=== PATIENT | male | born 1985 | race Caucasian/White ===

== ENCOUNTER → 2020-06-03 | Outpatient (CLI) | payer OTHER, SELFPAY | END | disposition home or self-care (01) | LOC: MTDU 17:40 | PROVIDERS: PCP Family Medicine; Referring Provider Student in an Organized Health Care Education/Training Program; Visit Provider Student in an Organized Health Care Education/Training Program | DX: M79.10 Myalgia, unspecified site (principal); R11.2 Nausea with vomiting, unspecified; Z78.9 Other specified health status; Z03.818 Encounter for observation for suspected exposure to other biological agents ruled out | CPT/HCPCS: 87635; C9803; U0003 ==

== ENCOUNTER 2020-11-29 01:50 | Observation (INO) | payer OTHER, SELFPAY ==
[2020-11-29] VITALS (14 sets, daily range): BP systolic 136–188; BP diastolic 70–110; PULSE 95–142; RESP 16–19; TEMP 36.6–37.2; O2SAT 94–98; BMI 41.3; BMI 38.9; BMI 39.0
--- NOTE | 2020-11-29 02:05 | EKG12_ITS ---
Test Reason : SYNCOPE Blood Pressure : / mmHG Vent. Rate : 115 BPM Atrial Rate : 115 BPM P-R Int : 164 ms QRS Dur : 094 ms QT Int : 336 ms P-R-T Axes : 047 020 021 degrees QTc Int : 464 ms Sinus tachycardia Otherwise normal ECG Confirmed by ONOFRE MICHELLE, LASHAWN ([id number]), continuity editor PHOENIX OLSEN ([id number]) on 11/29/2020 10:52:52 AM Referred By: RENETTA Confirmed By:LASHAWN ADHIKARI MD
--- NOTE | 2020-11-29 02:05 | RAD_ITS ---
STUDY: X-RAY CHEST REASON FOR EXAM: Male, 35 years old. syncope TECHNIQUE: Single AP portable view of the chest. COMPARISON: 03/19/2013 FINDINGS: The lungs are clear and expanded. There is no demonstrated pleural abnormality. Normal size heart. Normal mediastinum and karla. Normal visualized pulmonary arteries. Normal visualized aortic arch and descending thoracic aorta. Normal visualized thoracic spine. Normal visualized ribs, clavicles, and shoulders. There is no demonstrated abnormality of the visualized soft tissue structures of the upper abdomen. RAD/Chest 1 View (Portable) IMPRESSION: Normal x-ray examination of the chest. Electronically Signed: Abdulaziz York DO at 2:31 EST Tel , Service support ,
--- NOTE | 2020-11-29 02:06 | ED.VIS.GEN ---
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 Patient states that he was cleaning out the cats litter box while he was getting trash ready. He members leaning over to scoop the cat litter. He got a spasm-like sensation in his right hand and dropped the litter scope. He states he then felt a shocklike sensation on the right side of his head and he had a syncopal episode. Paramedics report the was doing chest compressions but did not check to see if he had a pulse. Paramedics state patient was sitting up, alert, and talking on their arrival. At this time patient states that he feels slightly dizzy but otherwise back to normal. He denies having chest pain or palpitations. He does report having a prescription for Ativan to take for palpitations that PCP felt was related to anxiety. After patient's arrived at bedside further history was able to be obtained. She states that the patient fell to the floor and had some mild convulsive type movements. She states he stopped breathing and started turning blue. control operator flow coat had her start chest compressions. She states he started having snoring respirations at that time. Shortly after the patient woke up but appeared dazed. He started pushing her arms to have her stop compressing his chest. - Past Medical History (1) Diabetes Status: Chronic (2) Anxiety Status: Chronic (3) Hypertension Status: Chronic Past Medical History - Allergies and Home Meds Allergies/Adverse Reactions: Allergies ibuprofen Adverse Reaction (Verified 11/29/20 01:56) Shortness of breath Primary Care Physician: Brad Lipscomb MD [Primary Care Provider] - Prior records reviewed: Yes Lives: With Family Smoking Status: Never smoker Review of Systems General: Denies: Chills, Fever Eyes: Denies: Visual changes - bilaterally ENT: Denies: Bilateral ear pain Cardiovascular: Denies: Chest pain, Palpitations Respiratory: Denies: Dyspnea, Cough Gastrointestinal: Denies: Abdominal pain, Nausea, Vomiting, Diarrhea Genitourinary: Denies: Dysuria Musculoskeletal: Denies: Swelling, Extremity Pain Skin: Denies: Rash Neurological: Denies: Headache Hematologic: Denies: Easy bruising, Easy bleeding Allergy: Denies: Uticaria Physical Exam Vital Signs/Narrative: Vital Signs Temp Pulse Resp BP Pulse Ox 11/29/20 01:50 98.6 F 118 H 19 H 188/110 H 94 Inital Vital Signs reviewed: Yes General: Well nourished, Well developed Head: Normocephalic ENT: Moist mucous membranes Neck: Supple Cardiovascular: Tachycardia Respiratory: No distress, CTA bilaterally Abdomen: Soft, Nontender, Normal bowel sounds Extremities: Nontender Skin: Normal color, No rash Neurological: Alert, Oriented x3, Normal Strength, Normal Sensation Psychological: Normal affect Diagnostic/Tx/Re-eval Chest X-Ray - ED: 1 View, Read by ED Physician, Normal, Heart, Lungs, Mediastinum Impressions Chest X-Ray 11/29/20 02:05 IMPRESSION: Normal x-ray examination of the chest. Electronically Signed: Abdulaziz York DO at 2:31 EST Tel , Service support , 11/29/20 02:05 Chest 1 View (Portable) [RAD] Stat Laboratory Results 11/29/20 11/29/20 11/29/20 01:30 01:30 02:25 WBC 9.0 RBC 5.30 Hgb 15.7 Hct 46.8 MCV 88.3 MCH 29.6 MCHC 33.5 RDW Std Deviation 40.3 RDW Coeff of Hardik 12.6 Plt Count 484 H MPV 10.3 Immature Gran % (Auto) 0.400 Neut % (Auto) 44.2 L Lymph % (Auto) 41.5 H Garrard % (Auto) 11.1 H Eos % (Auto) 1.8 Baso % (Auto) 1.0 Absolute Neuts (auto) 4.0 Absolute Lymphs (auto) 3.75 Nucleated RBC % 0 D-Dimer Quant (PE/DVT) 0.42 Sodium 140 Potassium 3.6 Chloride 102 Carbon Dioxide 20.0 L Anion Gap 18 H BUN 22 H Creatinine 1.25 Estim Creat Clear Calc 95.90 Est GFR (MDRD) Af Amer 84 Est GFR (MDRD) Non-Af 70 BUN/Creatinine Ratio 17.6 Glucose 357 H Calcium 9.4 Total Bilirubin 0.30 Direct Bilirubin 0.09 AST 14 L ALT 32 Alkaline Phosphatase 65 Troponin I < 0.015 Total Protein 7.7 Albumin 3.5 Globulin 4.2 Acetone Level 11/29/20 02:50 WBC RBC Hgb Hct MCV MCH MCHC RDW Std Deviation RDW Coeff of Hardik Plt Count MPV Immature Gran % (Auto) Neut % (Auto) Lymph % (Auto) Garrard % (Auto) Eos % (Auto) Baso % (Auto) Absolute Neuts (auto) Absolute Lymphs (auto) Nucleated RBC % D-Dimer Quant (PE/DVT) Sodium Potassium Chloride Carbon Dioxide Anion Gap BUN Creatinine Estim Creat Clear Calc Est GFR (MDRD) Af Amer Est GFR (MDRD) Non-Af BUN/Creatinine Ratio Glucose Calcium Total Bilirubin Direct Bilirubin AST ALT Alkaline Phosphatase Troponin I Total Protein Albumin Globulin Acetone Level NEGATIVE - EKG Initial EKG Interpretation: Sinus Tachycardia - Sinus tachycardia at 115. No acute ischemia. - Medical Decision Making Patient has been observed on playground monitor throughout his ED stay. Patient remains slightly tachycardic. IV fluids have been ordered. Blood sugar is elevated at 357. Anion gap is slightly elevated and bicarb is slightly low. Serum acetone, however, is negative. D-dimer is negative. Troponin is negative. At this time I will speak with the hospitalist regarding admission for observation of cardiac rhythm and any further symptoms. ED Disposition - Plan for ED Patient: Disposition: Acute Care Hospital [facility] Diagnosis: Syncope, Hyperglycemia Referrals: Brad Lipscomb MD [Primary Care Provider] -
[2020-11-29] MEDS: 0.9% Normal Saline 1,000 ML 1000 ML IV (02:11)
[2020-11-29 02:25] LABS: Absolute Lymphocyte Count 3.75 X10^3/uL (0.83-4.51); Basophil# 0.09 X10^3/uL; Eosinophil# 0.16 X10^3/uL; Eosinophils% 1.8 % (0-5); Hematocrit 46.8 % (40-54); Hemoglobin 15.7 g/dL (13.0-16.5); Lymphocyte # 3.75 X10^3/ul (4.0); Lymphocyte % 41.5 % (19-41); Mean Corp Hgb Conc 33.5 g/dL (32-36); Mean Corpuscular Hgb 29.6 pg (27.0-32.0); Mean Corpuscular Volume 88.3 fL (80-94); Mean Platelet Vol. 10.3 fl (6.2-12.0); Monocyte% 11.1 % (0-10); NRBC Flagged by Analyzer 0 % (0-5); Neutrophil % 44.2 % (47-70); Platelet Count 484 K/mm3 (150-450); RBC Distribution Width CV 12.6 % (11.6-14.6); RBC Distribution Width SD 40.3 fl (35.1-43.9)
[2020-11-29 02:37] LABS: AST(SGOT) 14 U/L (15-37); Alanine Aminotransfer ALT/SGPT 32 U/L (16-61); Albumin, Serum 3.5 g/dL (3.2-5.0); Alkaline Phosphatase 65 U/L (45-117); Anion Gap 18 (5-15); BUN 22 mg/dL (7-18); BUN/Creat Ratio 17.6 RATIO (10-20); Bilirubin, Direct 0.09 mg/dL (0.00-0.30); Calcium,Total 9.4 mg/dL (8.5-10.1); Chloride 102 mmol/L (98-107); Creatinine, Serum 1.25 mg/dL (0.70-1.30); EST Glomerular Filtration Rate 70 mL/min (>60); Est Glom Filt Rate - Afr Amer 84 mL/min (>60); Globulin 4.2 g/dL (2.2-4.2); Glucose 357 mg/dL (74-106); Potassium 3.6 mmol/L (3.5-5.1); Protein, Total 7.7 g/dL (6.4-8.2); Sodium Level 140 mmol/L (136-145)
[2020-11-29 02:46] LABS: D-Dimer Quantitative (DVT/PE) 0.42 FEU/ug/m (0.27-0.49)
--- NOTE | 2020-11-29 03:41 | PCM.HP.STD ---
Problem List (1) Diabetes Status: Chronic (2) Anxiety Status: Chronic (3) Hypertension Status: Chronic (4) Syncope Status: Acute (5) Hyperglycemia Status: Acute History of Present Illness Date of Admission: 11/29/20 Chief Complaint: Syncope The patient is a 35 year old M with a significant history of hypertension and diabetes who presented to emergency department with syncope. 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 He felt that his right hand was locked up. Then he felt a numbing and tingling sensation go down his right arm. Later he developed a headache. He then shouted to call his and then became unresponsive. His called the paramedics and was instructed to do CPR. Subsequently his did CPR. Further his reports shaking spell which was more prominent in patient's bilateral upper extremity.. He also had some shaking spells in his lower extremity. He had bowel or bladder incontinence. Patient was alert and oriented when paramedics go to his abode. Reportedly patient has been under stress and was started on as needed Ativan after his father in September 2020. Also an extended family member recently was diagnosed with pancreatic cancer and this contributed to patient stress. Of notes aside the patient's anxiety patient used to have palpitation for which reason he was prescribed a Holter monitor. Past Medical History Past Medical History (Chronic Problems): Chronic Problems Diabetes (Chronic) Anxiety (Chronic) Hypertension (Chronic) Allergies ibuprofen Adverse Reaction (Verified 11/29/20 01:56) Shortness of breath Home Medications: Ambulatory Orders Medication Instructions Recorded Lisinopril 10 mg PO DAILY 11/29/20 Lorazepam 1 mg PO PRN PRN 11/29/20 Surgical History: - - Lipoma Lives: With Family Smoking Status: Never smoker - *Family History Maternal History Items: Cancer Paternal History Items: Diabetes, Hypertension Review of Systems Constitutional: Denies: Chills, Fever, Weight Change HEENT: Denies: Head Aches, Sinus Congestion, Sinus Drainage Cardiovascular: Reports: Syncope. Denies: Chest Pain, Palpitations Respiratory: Denies: Cough, Shortness of breath at rest, Sputum production Gastrointestinal: Denies: Abdominal Pain, Nausea, Vomiting Genitourinary: Denies: Dysuria Musculoskeletal: Denies: Joint Pain, Joint Tenderness Skin: Denies: Rash, Wounds Neurological: Reports: Numbness, Tingling. Denies: Focal weakness Psychiatric: Denies: Anxiety, Depression, Homicidal Ideations, Suicidal Ideations Hematologic/ Lymphatic: Denies: Easy Bruising, Easy Bleeding VTE Information - Inpt Only VTE Present on Admission: No VTE Mechan Device Prophylaxis: None VTE Pharm Prophylaxis ordered?: Yes Patient Problems: Active and Suspected Problems Syncope (Acute) Hyperglycemia (Acute) - Physical Exam Vitals/I&O's: Vital Signs Temp Pulse Resp BP Pulse Ox 98.6 F 120 H 19 H 143/89 H 97 11/29/20 01:50 11/29/20 03:16 11/29/20 03:16 11/29/20 03:16 11/29/20 03:16 Oxygen Delivery Method Room Air Weight: 146.1 kg Body Mass Index (BMI) 41.3 Intake and Output for Last 24 Hours 11/27/20 11/28/20 11/29/20 23:59 23:59 23:59 Intake Total 1000 / 1000 Balance 1000 / 1000 General: Alert, Oriented x3, Cooperative HEENT: Atraumatic, PERRLA, EOMI, Normocephalic Neck: Supple, No JVD, Negative Carotid Bruits Lungs: Clear to auscultation, Normal air movement Cardiovascular: Regular rate, Normal S1, Normal S2, No murmurs, Tachycardic Abdomen: Bowel Sounds Present, Soft, Non Tender Extremities: No edema, Capillary Refill Less than 3 Seconds Skin: No rashes, No breakdown Musculoskeletal: No Tenderness to Palpation of Joints or Extremities Neurological: Cranial nerves II-XII grossly intact Psych/Mental Status: Normal Affect, Appropriate Laboratory Results 11/29/20 01:30: WBC 9.0, RBC 5.30, Hgb 15.7, Hct 46.8, MCV 88.3, MCH 29.6, MCHC 33.5, RDW Std Deviation 40.3, RDW Coeff of Hardik 12.6, Plt Count 484 H, MPV 10.3, Immature Gran % (Auto) 0.400, Neut % (Auto) 44.2 L, Lymph % (Auto) 41.5 H, Hodgeman % (Auto) 11.1 H, Eos % (Auto) 1.8, Baso % (Auto) 1.0, Absolute Neuts (auto) 4.0, Absolute Lymphs (auto) 3.75, Nucleated RBC % 0 11/29/20 01:30: Sodium 140, Potassium 3.6, Chloride 102, Carbon Dioxide 20.0 L, Anion Gap 18 H, BUN 22 H, Creatinine 1.25, Estim Creat Clear Calc 95.90, Est GFR (MDRD) Af Amer 84, Est GFR (MDRD) Non-Af 70, BUN/Creatinine Ratio 17.6, Glucose 357 H, Calcium 9.4, Total Bilirubin 0.30, Direct Bilirubin 0.09, AST 14 L, ALT 32, Alkaline Phosphatase 65, Troponin I < 0.015, Total Protein 7.7, Albumin 3.5, Globulin 4.2 11/29/20 02:25: D-Dimer Quant (PE/DVT) 0.42 11/29/20 02:50: Acetone Level NEGATIVE Assessment/Plan All Active Problems Syncope (Acute) Hyperglycemia (Acute) The patient is a 35 year old M with a significant history of hypertension and diabetes who presented to emergency department with syncope. Syncope Will get orthostatic vitals. Received normal saline bolus at emergency department. Normal saline at maintenance infusion rate continued. We will get an echocardiogram We will get EEG; CPK and prolactin. EKG done at emergency department was reviewed. It showed sinus tachycardia. Troponin was negative. Placed at the progressive care unit on telemetry. Hypertension Blood pressure is not within goal Lisinopril continued. As needed hydralazine ordered. Trend blood pressure and adjust blood pressure medications. Diabetes mellitus Patient with hyperglycemia on presentation Not on any hypoglycemic agents at home. Insulin lispro 6 units x 1 Accu-Chek QA [facility] with correction scale insulin ordered. Cardiac calorie controlled diet ordered. Morbid Obesity: BMI 41.4 kg/m?. Complicates care. Lifestyle modification recommended. DVT prophylaxis Subcutaneous Lovenox ordered. OBSV E&M: 40709 Initial observation care L2
--- NOTE | 2020-11-29 04:19 | ECHOCS_ITS ---
Reason For Study: syncope Procedure This was a 2D Doppler, Color Flow transthoracic echocardiogram. The study was technically difficult. D/T body habitus. Contrast injection was performed. Exam performed portable in patient room. Left Ventricle Normal LV size. Left ventricular systolic function is normal. The estimated ejection fraction is 65 %. Transmitral doppler flow suggestive of impaired relaxation of left ventricle. No regional wall motion abnormalities noted. Right Ventricle Normal RV size. Normal systolic function. Atria Borderline left atrial enlargement. Normal right atrium. No doppler evidence for ASD. Mitral Valve There is no mitral annular calcification. Normal mitral valve. Trivial mitral valve insufficiency. Tricuspid Valve Normal tricuspid valve. Trivial tricuspid valve insufficiency. Unable to estimate RV systolic pressure/pulmonary artery pressure due to technically difficult study. Aortic Valve The aortic valve is not well visualized. Pulmonic Valve The pulmonic valve is not well visualized. Trivial pulmonic valve insufficiency. Great Vessels Normal sized aortic root. Pericardium/Pleural No pericardial effusion. Medication Diluted definity 2.0ml given slow IV push to enhance endocardial definition. MMode/2D Measurements & Calculations LVIDd: 4.4 cm IVSd: 1.2 cm Ao root diam: 3.1 cm LVIDs: 2.8 cm LVPWd: 0.89 cm RVDd: 3.0 cm FS: 36.3 % LAV(MOD-bp): 62.0 ml LA A4 area: 20.7 cm2 LA dimension(2D): 3.6 cm LAV(MOD-bp) Indexed: 23.6 ml/m2 LAV(MOD-sp2): 58.0 ml LAV(MOD-sp4): 58.8 ml RA A4 area: 12.7 cm2 Doppler Measurements & Calculations MV E max phani: 137.3 cm/sec Lat Peak E' Phani: 13.3 cm/sec Med Peak E' Phani: 11.1 cm/sec MV A max phani: 152.8 cm/sec E/E' lat: 10.3 E/E' med: 12.4 MV E/A: 0.90 Ao V2 max: 173.4 cm/sec LV V1 max: 121.7 cm/sec PA V2 max: 117.5 cm/sec Ao max P.0 mmHg LV V1 max P.9 mmHg Interpretation Summary The study was technically difficult. Contrast injection was performed. Left ventricular systolic function is normal. The estimated ejection fraction is 65 %. Borderline left atrial enlargement. Trivial mitral valve insufficiency. Trivial tricuspid valve insufficiency. Trivial pulmonic valve insufficiency. Unable to estimate RV systolic pressure/pulmonary artery pressure due to technically difficult study. Transmitral doppler flow suggestive of impaired relaxation of left ventricle Ordering Physician: Braulio Wong Referring Physician: ekta Lipscomb Performed By: Bryanna Barkley RDCS, RVT
[2020-11-29] MEDS: LORazepam 1 MG Tablet PO ×2 (05:18→22:38)
[2020-11-29] MEDS: Acetaminophen 325 MG Tablet 650 MG PO ×2 (05:18→22:38)
[2020-11-29] MEDS: 0.9% Normal Saline 1,000 ML 100 ML IV (05:22)
[2020-11-29] MEDS: Insulin Lispro 100 UNIT/ML INSULN.PEN 6 UNIT SC (05:25)
[2020-11-29 05:46] LABS: Bedside Glucose 401 mg/dL (70-110)
[2020-11-29 06:33] LABS: Absolute Lymphocyte Count 1.49 X10^3/uL (0.83-4.51); Absolute Neutrophil Count 8.3 X10^3/uL (2.0-7.7); Basophil% 0.9 % (0-1); Eosinophil# 0.06 X10^3/uL; Eosinophils% 0.6 % (0-5); Hematocrit 47.7 % (40-54); Hemoglobin 15.1 g/dL (13.0-16.5); Lymphocyte # 1.49 X10^3/ul (4.0); Lymphocyte % 13.8 % (19-41); Mean Corp Hgb Conc 31.7 g/dL (32-36); Mean Corpuscular Hgb 29.2 pg (27.0-32.0); Mean Corpuscular Volume 92.1 fL (80-94); Mean Platelet Vol. 9.9 fl (6.2-12.0); Monocyte# 0.75 X10^3/uL; NRBC Flagged by Analyzer 0 % (0-5); Neutrophil # 8.27 X10^3/uL (2.7-7.7); Neutrophil % 76.9 % (47-70); Platelet Count 347 K/mm3 (150-450); RBC Distribution Width CV 12.6 % (11.6-14.6); RBC Distribution Width SD 42.8 fl (35.1-43.9); Red Blood Count 5.18 M/mm3 (4.6-6.2); White Blood Count 10.8 K/mm3 (4.4-11.0)
[2020-11-29 06:56] LABS: Anion Gap 13 (5-15); BUN 20 mg/dL (7-18); BUN/Creat Ratio 22.4 RATIO (10-20); CPK Total, Creatine Kinase 145 U/L (39-308); Calcium,Total 8.8 mg/dL (8.5-10.1); Chloride 106 mmol/L (98-107); Creatinine, Serum 0.89 mg/dL (0.70-1.30); EST Glomerular Filtration Rate 103 mL/min (>60); Est Glom Filt Rate - Afr Amer 125 mL/min (>60); Estimated Creatinine Clearance 138.46 ml/min; Glucose 356 mg/dL (74-106); Sodium Level 136 mmol/L (136-145)
--- NOTE | 2020-11-29 07:59 | TELEMED_ITS ---
[facility] Tele[facility] has confirmed receipt of a request for visit. This document confirms receipt of the order initiating the consult. To find the results of the consultation, please view the patient's reports for the scanned Telemed Consult.
[2020-11-29 08:53] LABS: Hemoglobin A1c 10.5 % (3.8-5.6)
[2020-11-29] MEDS: Lisinopril 10 MG Tablet PO (09:22)
[2020-11-29] MEDS: Enoxaparin 40 MG/0.4 ML Syringe SC ×2 (09:22→22:39)
[2020-11-29 11:36] LABS: Phosphorus 3.2 mg/dL (2.5-4.9)
[2020-11-29 13:05] LABS: Bedside Glucose 321 mg/dL (70-110)
[2020-11-29] MEDS: 0.9% Normal Saline 1,000 ML 125 ML IV ×2 (14:08→22:39)
[2020-11-29] MEDS: Insulin Lispro 100 UNIT/ML INSULN.PEN SC ×5 (14:09→22:42)
--- NOTE | 2020-11-29 15:33 | DCINST_ITS ---
- Discharge Diagnoses Current Active Problems: Current Active and Chronic Problems Diabetes (Chronic) Anxiety (Chronic) Hypertension (Chronic) Syncope (Acute) Hyperglycemia (Acute) You will use the following diet at home:: Calorie/Carbohydrate Controlled (specify 1200, 1400, etc) Discharge Activity: Return to Normal Activity Call your doctor if you observe: Shortness of breath, Dizziness, Fainting spells, Chest pain Allergies/Adverse Reactions: Allergies ibuprofen Adverse Reaction (Verified 11/29/20 01:56) Shortness of breath Medications to take at Discharge Insulin Glargine [Lantus SoloStar Pen] 20 units SC DINNER #1 box 11/29/20 Insulin Lispro [Humalog KwikPen] See Protocol SC ACHS #1 box 11/29/20 Lisinopril 10 mg PO DAILY 11/29/20 Lorazepam 1 mg PO PRN PRN 11/29/20 Pen Needle, Diabetic [Pen [place]] 1 ea ACHS #1 box 11/29/20 The following prescriptions were given: Insulin Lispro [Humalog KwikPen] See Protocol [place] ACHS #1 box Transmission Status: Pending to [id number] Insulin Glargine [Lantus SoloStar Pen] 20 units SC DINNER #1 box Transmission Status: Pending to [id number] Pen Needle, Diabetic [Pen [place]] 1 ea ACHS #1 box Transmission Status: Pending to [id number] Orders to be completed after discharge: Glucometer Location: None Selected Primary Care Physician: Brad Lipscomb MD [Primary Care Provider] - Please follow up with your Primary Care Physician in: 1 Week Test Results: Test results from this visit will be discussed in further detail at your follow- up appointment, if applicable. Proposed Discharge Date: 11/29/20
--- NOTE | 2020-11-29 15:41 | DS.PCM_ITS ---
Discharge Date and Diagnosis - Problem List Patient Problems: Active and Suspected Problems Syncope (Acute) Hyperglycemia (Acute) Date of Admission: 11/29/20 Date of Discharge: 11/29/20 - Primary Discharge Diagnosis Acute Problems: Active Problems 1. Syncope 2. Type 2 diabetes mellitus, uncontrolled 3. Hypertension 4. Morbid obesity 5. Anxiety - Secondary Discharge Diagnosis Chronic Problems: Chronic Problems Diabetes (Chronic) Anxiety (Chronic) Hypertension (Chronic) Hospital Course and Treatment Imaging Results: Diagnostic Data Chest X-Ray 11/29/20 02:05 IMPRESSION: Normal x-ray examination of the chest. Electronically Signed: Abdulaziz York DO at 2:31 EST Tel , Service support , Operations: None Procedures: 2-D Echocardiogram, Electroencephalogram Summary of Care Provided: The patient is a 35 year old M admitted 11/29/2020 due to syncope. 1. Syncope-unclear etiology. Troponin negative. Glucose significantly elevated on admission. No arrhythmias on telemetry. Echocardiogram demonstrates an EF of 65%. EEG unremarkable. SOC consult as patient's is concerned for seizure. 2. Type 2 diabetes mellitus, uncontrolled-previously on medications however was taken off due to significant weight loss. Patient has since gained weight back. Hemoglobin A1c 10.5%. Sliding scale insulin and Lantus. Will need insulin, glucometer, testing supplies at discharge. 3. Hypertension-stable, continue lisinopril. 4. Morbid obesity-diet and lifestyle modifications encouraged. 5. Anxiety-on as needed Ativan. General: Alert, Oriented x3, Cooperative HEENT: Atraumatic, PERRLA, EOMI, Normocephalic Neck: Supple, No JVD, Negative Carotid Bruits Lungs: Clear to auscultation, Normal air movement Cardiovascular: Regular rate, No murmurs Abdomen: Bowel Sounds Present, Soft, Non Tender, Non-Distended, Obese Extremities: No clubbing, No cyanosis, No edema, Capillary Refill Less than 3 Seconds Skin: No rashes, No breakdown Musculoskeletal: No Tenderness to Palpation of Joints or Extremities Neurological: Cranial nerves II-XII grossly intact, Neuro grossly intact Psych/Mental Status: Normal Affect, Appropriate Patient seen and examined prior to discharge. Physical assessment as noted above. Patient is stable for discharge with follow up recommendations as noted above. This patient was seen by CLOUMBA Santoro under the supervision of Dr. Paiz. Patient Problems: Active and Suspected Problems Syncope (Acute) Hyperglycemia (Acute) - Physical Exam Vitals/I&O's: Vital Signs Temp Pulse Resp BP Pulse Ox 98.1 F 106 H 18 159/90 H 95 11/29/20 10:30 11/29/20 14:55 11/29/20 10:30 11/29/20 10:30 11/29/20 10:30 Oxygen Delivery Method Room Air Weight: 311 lb 11.738 oz Body Mass Index (BMI) 38.9 Intake and Output for Last 24 Hours 11/27/20 11/28/20 11/29/20 23:59 23:59 23:59 Intake Total 2236.67 / 2236.67 Balance 2236.67 / 2236.67 General: Alert, Oriented x3, Cooperative HEENT: Atraumatic, PERRLA, EOMI, Normocephalic Neck: Supple, No JVD, Negative Carotid Bruits Lungs: Clear to auscultation, Normal air movement Cardiovascular: Regular rate, No murmurs Abdomen: Bowel Sounds Present, Soft, Non Tender, Non-Distended, Obese Extremities: No clubbing, No cyanosis, No edema, Capillary Refill Less than 3 Seconds Neurological: Cranial nerves II-XII grossly intact, Neuro grossly intact Psych/Mental Status: Normal Affect, Appropriate Laboratory Results 11/29/20 01:30: WBC 9.0, RBC 5.30, Hgb 15.7, Hct 46.8, MCV 88.3, MCH 29.6, MCHC 33.5, RDW Std Deviation 40.3, RDW Coeff of Hardik 12.6, Plt Count 484 H, MPV 10.3, Immature Gran % (Auto) 0.400, Neut % (Auto) 44.2 L, Lymph % (Auto) 41.5 H, [place] % (Auto) 11.1 H, Eos % (Auto) 1.8, Baso % (Auto) 1.0, Absolute Neuts (auto) 4.0, Absolute Lymphs (auto) 3.75, Nucleated RBC % 0 11/29/20 01:30: Sodium 140, Potassium 3.6, Chloride 102, Carbon Dioxide 20.0 L, Anion Gap 18 H, BUN 22 H, Creatinine 1.25, Estim Creat Clear Calc 95.90, Est GFR (MDRD) Af Amer 84, Est GFR (MDRD) Non-Af 70, BUN/Creatinine Ratio 17.6, Glucose 357 H, Calcium 9.4, Total Bilirubin 0.30, Direct Bilirubin 0.09, AST 14 L, ALT 32, Alkaline Phosphatase 65, Troponin I < 0.015, Total Protein 7.7, Albumin 3.5, Globulin 4.2 11/29/20 02:25: D-Dimer Quant (PE/DVT) 0.42 11/29/20 02:50: Acetone Level NEGATIVE 11/29/20 05:28: POC Glucose 401 H 11/29/20 06:25: Sodium 136, Potassium 4.0, Chloride 106, Carbon Dioxide 17.0 L, Anion Gap 13, BUN 20 H, Creatinine 0.89, Estim Creat Clear Calc 138.46, Est GFR (MDRD) Af Amer 125, Est GFR (MDRD) Non-Af 103, BUN/Creatinine Ratio 22.4 H, Glu cose 356 H, Calcium 8.8, Total Creatine Kinase 145, Prolactin 7.0 11/29/20 06:25: WBC 10.8, RBC 5.18, Hgb 15.1, Hct 47.7, MCV 92.1, MCH 29.2, MCHC 31.7 L D, RDW Std Deviation 42.8, RDW Coeff of Hardik 12.6, Plt Count 347, MPV 9.9, Immature Gran % (Auto) 0.800, Neut % (Auto) 76.9 H, Lymph % (Auto) 13.8 L, [place] % (Auto) 7.0, Eos % (Auto) 0.6, Baso % (Auto) 0.9, Absolute Neuts (auto) 8.3 H, Absolute Lymphs (auto) 1.49, Nucleated RBC % 0 11/29/20 06:25: Hemoglobin A1c 10.5 H 11/29/20 06:25: Phosphorus 3.2 11/29/20 13:01: POC Glucose 321 H Current Medications Acetaminophen (Acetaminophen 325 Mg Tablet) 650 mg PO Q6H PRN PRN PRN Reason: Pain Score 1-10/Temp > 100.7 F Last Admin: 11/29/20 05:18 Dose: 650 mg Documented by: Dextrose (Dextrose 50%-Water 25 Gm/50 Ml Disp.Syrin) 0 gm IV X1 PRN; Protocol PRN Reason: Hypoglycemia Enoxaparin Sodium (Enoxaparin 40 Mg/0.4 Ml Syringe) 40 mg SC BID [facility] Last Admin: 11/29/20 09:22 Dose: 40 mg Documented by: Glucagon (Glucagon 1 Mg/Ml Syringe) 1 mg IM .X1 PRN PRN Reason: Hypoglycemia Sodium Chloride () 1,000 mls @ 125 mls/hr IV .Q8H [facility] Last Admin: 11/29/20 14:08 Dose: 125 mls/hr Documented by: Insulin Glargine (Insulin Glargine 100 Units/Ml Pen) 20 units SC DINNER [facility] Insulin Human Lispro (Insulin Lispro 100 Unit/Ml Insuln.Pen) 0 unit SC ACHS [facility]; Protocol Last Admin: 11/29/20 14:09 Dose: 6 units Documented by: Insulin Human Lispro (Insulin Lispro 100 Unit/Ml Insuln.Pen) 5 unit SC TIDAC [facility] Last Admin: 11/29/20 14:09 Dose: 5 units Documented by: Labetalol HCl (Labetalol (Prefilled) 20 Mg/4 Ml) 10 mg IV Q6 PRN PRN Reason: SBP > 160 OR DBP > 120 Lisinopril (Lisinopril 10 Mg Tablet) 10 mg PO DAILY [facility] Last Admin: 11/29/20 09:22 Dose: 10 mg Documented by: Lorazepam (Lorazepam 1 Mg Tablet) 1 mg PO DAILY PRN PRN Reason: ANXIETY Last Admin: 11/29/20 05:18 Dose: 1 mg Documented by: Ondansetron HCl (Ondansetron 4 Mg/2 Ml Vial) 4 mg IV Q8H PRN PRN PRN Reason: NAUSEA/VOMITING Sodium Chloride (0.9% Saline Lock 10 Ml Syringe) 10 - 40 ml IV UD PRN PRN Reason: SALINE FLUSH Discharge Diet: Carb Control Diet Discharge Activity: Return to Normal Activity Call your doctor if you observe: Shortness of breath, Dizziness, Fainting spells, Chest pain Home Medications: Medications to take at Discharge Insulin Glargine [Lantus SoloStar Pen] 20 units SC DINNER #1 box 11/29/20 Insulin Lispro [Humalog KwikPen] See Protocol [place] ACHS #1 box 11/29/20 Lisinopril 10 mg PO DAILY 11/29/20 Lorazepam 1 mg PO PRN PRN 11/29/20 Pen Needle, Diabetic [Pen [place]] 1 ea ACHS #1 box 11/29/20 Following Prescriptions Were Given to Patient: Insulin Lispro [Humalog KwikPen] See Protocol [place] ACHS #1 box Transmission Status: Received by [facility] Insulin Glargine [Lantus SoloStar Pen] 20 units SC DINNER #1 box Transmission Status: Received by [facility] Pen Needle, Diabetic [Pen [place]] 1 ea ACHS #1 box Transmission Status: Received by [facility] Other Amb Orders: Glucometer Location: None Selected Primary Care Physician: Brad Lipscomb MD [Primary Care Provider] - Please follow up with your Primary Care Physician in: 1 Week Disposition: Home Minutes spent on discharge:: 35 Patient Condition:: Stable Medical Necessity - Tobacco Use Smoking Status: Never smoker Meaningful Use Info Meaningful Use Diagnoses (Choose all that apply): None applicable
--- NOTE | 2020-11-29 15:46 | PCM.PROGNOTE ---
<Gregory Velásquezssica LADLE CLEANER - Last Filed: 11/29/20 15:49> Patient Problems: Active and Suspected Problems Syncope (Acute) Hyperglycemia (Acute) Subjective: Patient seen and examined. No acute events overnight. Denies lightheadedness, dizziness. concerned that patient had seizure. - Physical Exam Vitals/I&O's: Vital Signs Temp Pulse Resp BP Pulse Ox 98.1 F 106 H 18 159/90 H 95 11/29/20 10:30 11/29/20 14:55 11/29/20 10:30 11/29/20 10:30 11/29/20 10:30 Oxygen Delivery Method Room Air Weight: 311 lb 11.738 oz Body Mass Index (BMI) 38.9 Intake and Output for Last 24 Hours 11/27/20 11/28/20 11/29/20 23:59 23:59 23:59 Intake Total 2236.67 / 2236.67 Balance 2236.67 / 2236.67 General: Alert, Oriented x3, Cooperative HEENT: Atraumatic, PERRLA, EOMI, Normocephalic Neck: Supple, No JVD, Negative Carotid Bruits Lungs: Clear to auscultation, Normal air movement Cardiovascular: Regular rate, No murmurs Abdomen: Bowel Sounds Present, Soft, Non Tender, Non-Distended, Obese Extremities: No clubbing, No cyanosis, No edema, Capillary Refill Less than 3 Seconds Skin: No rashes, No breakdown Musculoskeletal: No Tenderness to Palpation of Joints or Extremities Neurological: Cranial nerves II-XII grossly intact, Neuro grossly intact Psych/Mental Status: Normal Affect, Appropriate Laboratory Results 11/29/20 01:30: WBC 9.0, RBC 5.30, Hgb 15.7, Hct 46.8, MCV 88.3, MCH 29.6, MCHC 33.5, RDW Std Deviation 40.3, RDW Coeff of Hardik 12.6, Plt Count 484 H, MPV 10.3, Immature Gran % (Auto) 0.400, Neut % (Auto) 44.2 L, Lymph % (Auto) 41.5 H, [place] % (Auto) 11.1 H, Eos % (Auto) 1.8, Baso % (Auto) 1.0, Absolute Neuts (auto) 4.0, Absolute Lymphs (auto) 3.75, Nucleated RBC % 0 11/29/20 01:30: Sodium 140, Potassium 3.6, Chloride 102, Carbon Dioxide 20.0 L, Anion Gap 18 H, BUN 22 H, Creatinine 1.25, Estim Creat Clear Calc 95.90, Est GFR (MDRD) Af Amer 84, Est GFR (MDRD) Non-Af 70, BUN/Creatinine Ratio 17.6, Glucose 357 H, Calcium 9.4, Total Bilirubin 0.30, Direct Bilirubin 0.09, AST 14 L, ALT 32, Alkaline Phosphatase 65, Troponin I < 0.015, Total Protein 7.7, Albumin 3.5, Globulin 4.2 11/29/20 02:25: D-Dimer Quant (PE/DVT) 0.42 11/29/20 02:50: Acetone Level NEGATIVE 11/29/20 05:28: POC Glucose 401 H 11/29/20 06:25: Sodium 136, Potassium 4.0, Chloride 106, Carbon Dioxide 17.0 L, Anion Gap 13, BUN 20 H, Creatinine 0.89, Estim Creat Clear Calc 138.46, Est GFR (MDRD) Af Amer 125, Est GFR (MDRD) Non-Af 103, BUN/Creatinine Ratio 22.4 H, Glucose 356 H, Calcium 8.8, Total Creatine Kinase 145, Prolactin 7.0 11/29/20 06:25: WBC 10.8, RBC 5.18, Hgb 15.1, Hct 47.7, MCV 92.1, MCH 29.2, MCHC 31.7 L D, RDW Std Deviation 42.8, RDW Coeff of Hardik 12.6, Plt Count 347, MPV 9.9, Immature Gran % (Auto) 0.800, Neut % (Auto) 76.9 H, Lymph % (Auto) 13.8 L, [place] % (Auto) 7.0, Eos % (Auto) 0.6, Baso % (Auto) 0.9, Absolute Neuts (auto) 8.3 H, Absolute Lymphs (auto) 1.49, Nucleated RBC % 0 11/29/20 06:25: Hemoglobin A1c 10.5 H 11/29/20 06:25: Phosphorus 3.2 11/29/20 13:01: POC Glucose 321 H Current Medications Acetaminophen (Acetaminophen 325 Mg Tablet) 650 mg PO Q6H PRN PRN PRN Reason: Pain Score 1-10/Temp > 100.7 F Last Admin: 11/29/20 05:18 Dose: 650 mg Documented by: Dextrose (Dextrose 50%-Water 25 Gm/50 Ml Disp.Syrin) 0 gm IV X1 PRN; Protocol PRN Reason: Hypoglycemia Enoxaparin Sodium (Enoxaparin 40 Mg/0.4 Ml Syringe) 40 mg SC BID [facility] Last Admin: 11/29/20 09:22 Dose: 40 mg Documented by: Glucagon (Glucagon 1 Mg/Ml Syringe) 1 mg IM .X1 PRN PRN Reason: Hypoglycemia Sodium Chloride () 1,000 mls @ 125 mls/hr IV .Q8H [facility] Last Admin: 11/29/20 14:08 Dose: 125 mls/hr Documented by: Insulin Glargine (Insulin Glargine 100 Units/Ml Pen) 20 units SC DINNER [facility] Insulin Human Lispro (Insulin Lispro 100 Unit/Ml Insuln.Pen) 0 unit SC ACHS [facility]; Protocol Last Admin: 11/29/20 14:09 Dose: 6 units Documented by: Insulin Human Lispro (Insulin Lispro 100 Unit/Ml Insuln.Pen) 5 unit SC TIDAC [facility] Last Admin: 11/29/20 14:09 Dose: 5 units Documented by: Labetalol HCl (Labetalol (Prefilled) 20 Mg/4 Ml) 10 mg IV Q6 PRN PRN Reason: SBP > 160 OR DBP > 120 Lisinopril (Lisinopril 10 Mg Tablet) 10 mg PO DAILY [facility] Last Admin: 11/29/20 09:22 Dose: 10 mg Documented by: Lorazepam (Lorazepam 1 Mg Tablet) 1 mg PO DAILY PRN PRN Reason: ANXIETY Last Admin: 11/29/20 05:18 Dose: 1 mg Documented by: Ondansetron HCl (Ondansetron 4 Mg/2 Ml Vial) 4 mg IV Q8H PRN PRN PRN Reason: NAUSEA/VOMITING Sodium Chloride (0.9% Saline Lock 10 Ml Syringe) 10 - 40 ml IV UD PRN PRN Reason: SALINE FLUSH Medical Necessity - Tobacco Use Smoking Status: Never smoker Assessment/Plan All Active Problems Syncope (Acute) Hyperglycemia (Acute) 1. Syncope-unclear etiology. Troponin negative. Glucose significantly elevated on admission. No arrhythmias on telemetry. Echocardiogram demonstrates an EF of 65%. EEG unremarkable. SOC consult as patient's is concerned for seizure. Obtain orthostatic vitals. 2. Type 2 diabetes mellitus, uncontrolled-previously on medications however was taken off due to significant weight loss. Patient has since gained weight back. Hemoglobin A1c 10.5%. Sliding scale insulin and Lantus. Will need insulin, glucometer, testing supplies at discharge. 3. Hypertension-stable, continue lisinopril. 4. Morbid obesity-diet and lifestyle modifications encouraged. 5. Anxiety-on as needed Ativan. DVT prophylaxis-Lovenox subcu This patient was seen by COLUMBA Santoro under the supervision of Dr. Paiz. <Josefa Paiz - Last Filed: 11/29/20 16:19> - Physical Exam Vitals/I&O's: Vital Signs Temp Pulse Resp BP Pulse Ox 98.1 F 106 H 18 159/90 H 95 11/29/20 10:30 11/29/20 14:55 11/29/20 10:30 11/29/20 10:30 11/29/20 10:30 Oxygen Delivery Method Room Air Weight: 141.4 kg Body Mass Index (BMI) 38.9 Intake and Output for Last 24 Hours 11/27/20 11/28/20 11/29/20 23:59 23:59 23:59 Intake Total 2236.67 / 2236.67 Balance 2236.67 / 2236.67 Laboratory Results 11/29/20 01:30: WBC 9.0, RBC 5.30, Hgb 15.7, Hct 46.8, MCV 88.3, MCH 29.6, MCHC 33.5, RDW Std Deviation 40.3, RDW Coeff of Hardik 12.6, Plt Count 484 H, MPV 10.3, Immature Gran % (Auto) 0.400, Neut % (Auto) 44.2 L, Lymph % (Auto) 41.5 H, [place] % (Auto) 11.1 H, Eos % (Auto) 1.8, Baso % (Auto) 1.0, Absolute Neuts (auto) 4.0, Absolute Lymphs (auto) 3.75, Nucleated RBC % 0 11/29/20 01:30: Sodium 140, Potassium 3.6, Chloride 102, Carbon Dioxide 20.0 L, Anion Gap 18 H, BUN 22 H, Creatinine 1.25, Estim Creat Clear Calc 95.90, Est GFR (MDRD) Af Amer 84, Est GFR (MDRD) Non-Af 70, BUN/Creatinine Ratio 17.6, Glucose 357 H, Calcium 9.4, Total Bilirubin 0.30, Direct Bilirubin 0.09, AST 14 L, ALT 32, Alkaline Phosphatase 65, Troponin I < 0.015, Total Protein 7.7, Albumin 3.5, Globulin 4.2 11/29/20 02:25: D-Dimer Quant (PE/DVT) 0.42 11/29/20 02:50: Acetone Level NEGATIVE 11/29/20 05:28: POC Glucose 401 H 11/29/20 06:25: Sodium 136, Potassium 4.0, Chloride 106, Carbon Dioxide 17.0 L, Anion Gap 13, BUN 20 H, Creatinine 0.89, Estim Creat Clear Calc 138.46, Est GFR (MDRD) Af Amer 125, Est GFR (MDRD) Non-Af 103, BUN/Creatinine Ratio 22.4 H, Glucose 356 H, Calcium 8.8, Total Creatine Kinase 145, Prolactin 7.0 11/29/20 06:25: WBC 10.8, RBC 5.18, Hgb 15.1, Hct 47.7, MCV 92.1, MCH 29.2, MCHC 31.7 L D, RDW Std Deviation 42.8, RDW Coeff of Hardik 12.6, Plt Count 347, MPV 9.9, Immature Gran % (Auto) 0.800, Neut % (Auto) 76.9 H, Lymph % (Auto) 13.8 L, [place] % (Auto) 7.0, Eos % (Auto) 0.6, Baso % (Auto) 0.9, Absolute Neuts (auto) 8.3 H, Absolute Lymphs (auto) 1.49, Nucleated RBC % 0 11/29/20 06:25: Hemoglobin A1c 10.5 H 11/29/20 06:25: Phosphorus 3.2 11/29/20 13:01: POC Glucose 321 H Current Medications Acetaminophen (Acetaminophen 325 Mg Tablet) 650 mg PO Q6H PRN PRN PRN Reason: Pain Score 1-10/Temp > 100.7 F Last Admin: 11/29/20 05:18 Dose: 650 mg Documented by: Dextrose (Dextrose 50%-Water 25 Gm/50 Ml Disp.Syrin) 0 gm IV X1 PRN; Protocol PRN Reason: Hypoglycemia Enoxaparin Sodium (Enoxaparin 40 Mg/0.4 Ml Syringe) 40 mg SC BID [facility] Last Admin: 11/29/20 09:22 Dose: 40 mg Documented by: Glucagon (Glucagon 1 Mg/Ml Syringe) 1 mg IM .X1 PRN PRN Reason: Hypoglycemia Sodium Chloride () 1,000 mls @ 125 mls/hr IV .Q8H [facility] Last Admin: 11/29/20 14:08 Dose: 125 mls/hr Documented by: Insulin Glargine (Insulin Glargine 100 Units/Ml Pen) 20 units SC DINNER [facility] Insulin Human Lispro (Insulin Lispro 100 Unit/Ml Insuln.Pen) 0 unit SC ACHS [facility]; Protocol Last Admin: 11/29/20 14:09 Dose: 6 units Documented by: Insulin Human Lispro (Insulin Lispro 100 Unit/Ml Insuln.Pen) 5 unit SC TIDAC [facility] Last Admin: 11/29/20 14:09 Dose: 5 units Documented by: Labetalol HCl (Labetalol (Prefilled) 20 Mg/4 Ml) 10 mg IV Q6 PRN PRN Reason: SBP > 160 OR DBP > 120 Lisinopril (Lisinopril 10 Mg Tablet) 10 mg PO DAILY [facility] Last Admin: 11/29/20 09:22 Dose: 10 mg Documented by: Lorazepam (Lorazepam 1 Mg Tablet) 1 mg PO DAILY PRN PRN Reason: ANXIETY Last Admin: 11/29/20 05:18 Dose: 1 mg Documented by: Ondansetron HCl (Ondansetron 4 Mg/2 Ml Vial) 4 mg IV Q8H PRN PRN PRN Reason: NAUSEA/VOMITING Sodium Chloride (0.9% Saline Lock 10 Ml Syringe) 10 - 40 ml IV UD PRN PRN Reason: SALINE FLUSH Assessment/Plan This patient was seen in conjunction with Cydney Velásquez NP. I have independently interviewed and examined the patient and reviewed pertinent historical, laboratory, and other data. Please refer to her note for patient's presentation, findings, and recommendations. Patient was seen and examined. He admitted to being diagnosed with diabetes and being on insulin in 2012. Previous HbA1c in 2013 was>11. On insulin at a time but lost a lot of weight and did not need insulin. He admits that he has gained weight. EEG was unremarkable. Denied any dizziness or palpitations or shortness of breath. No acute events overnight. Vitals were reviewed -stable Physical Exam: Gen: Comfortable, not pale, not jaundiced, alert oriented x3 CVS:HS I +II, regular, no murmurs RESP: CTA GI: BS present and normal, nontender, no palpable organs EXT:No edema Labs reviewed: ASSESSMENT: 1. Syncope 2. Possible seizure 3. Type II DM, uncontrolled 4. Hypertension 5. Morbid obesity 6. Anxiety disorder Meds reviewed Plan: Will start patient on Lantus, premeal insulin Continue to monitor blood sugars Continue IV fluids SOC consult Inpatient E&M: 21938 Subs Hosp L2
[2020-11-29 18:06] LABS: Bedside Glucose 252 mg/dL (70-110)
[2020-11-29 22:50] LABS: Bedside Glucose 298 mg/dL (70-110)
[2020-11-30] VITALS (10 sets, daily range): BP systolic 123–170; BP diastolic 63–97; PULSE 78–119; RESP 16–18; TEMP 36.4–37.3; O2SAT 96–98
[2020-11-30 05:45] LABS: Absolute Lymphocyte Count 2.61 X10^3/uL (0.83-4.51); Absolute Neutrophil Count 2.8 X10^3/uL (2.0-7.7); Basophil# 0.07 X10^3/uL; Basophil% 1.1 % (0-1); Eosinophil# 0.19 X10^3/uL; Hematocrit 40.7 % (40-54); Hemoglobin 13.4 g/dL (13.0-16.5); Lymphocyte # 2.61 X10^3/ul (4.0); Lymphocyte % 40.8 % (19-41); Mean Corp Hgb Conc 32.9 g/dL (32-36); Mean Corpuscular Volume 91.3 fL (80-94); Mean Platelet Vol. 9.6 fl (6.2-12.0); Monocyte# 0.66 X10^3/uL; Monocyte% 10.3 % (0-10); NRBC Flagged by Analyzer 0 % (0-5); Neutrophil # 2.83 X10^3/uL (2.7-7.7); Neutrophil % 44.3 % (47-70); Platelet Count 320 K/mm3 (150-450); RBC Distribution Width CV 12.7 % (11.6-14.6); RBC Distribution Width SD 41.9 fl (35.1-43.9); Red Blood Count 4.46 M/mm3 (4.6-6.2); White Blood Count 6.4 K/mm3 (4.4-11.0)
[2020-11-30] MEDS: 0.9% Normal Saline 1,000 ML 125 ML IV ×2 (05:58→15:38)
[2020-11-30 06:04] LABS: ALB/GLOB Ratio 0.8 RATIO (0.9-2.4); AST(SGOT) 9 U/L (15-37); Alanine Aminotransfer ALT/SGPT 23 U/L (16-61); Albumin, Serum 2.7 g/dL (3.2-5.0); Alkaline Phosphatase 47 U/L (45-117); Anion Gap 8 (5-15); BUN 12 mg/dL (7-18); BUN/Creat Ratio 18.1 RATIO (10-20); Calcium,Total 8.5 mg/dL (8.5-10.1); Chloride 108 mmol/L (98-107); Creatinine, Serum 0.66 mg/dL (0.70-1.30); EST Glomerular Filtration Rate 145 mL/min (>60); Est Glom Filt Rate - Afr Amer 175 mL/min (>60); Estimated Creatinine Clearance 186.71 ml/min; Globulin 3.4 g/dL (2.2-4.2); Glucose 224 mg/dL (74-106); Potassium 3.4 mmol/L (3.5-5.1); Protein, Total 6.1 g/dL (6.4-8.2); Sodium Level 139 mmol/L (136-145)
[2020-11-30] MEDS: Insulin Lispro 100 UNIT/ML INSULN.PEN SC ×7 (06:24→21:53)
[2020-11-30 06:25] LABS: Bedside Glucose 238 mg/dL (70-110)
--- NOTE | 2020-11-30 07:20 | MRI_ITS ---
We are attempting to reach an attending provider to discuss findings. An addendum with communication details will be sent when the communication is complete. STUDY: MRI BRAIN WITH AND WITHOUT CONTRAST REASON FOR EXAM: Male, 35 years old. syncope TECHNIQUE: Standardized multiplanar fat and water weighted pulse sequences were obtained. IV dotarem 28ml was administered for the contrast portion of the examination. COMPARISON: None. FINDINGS: There is an 8 mm focus of enhancement involving the left frontal lobe (axial image #21 series 10). There is associated increased FLAIR signal. Otherwise there is no increased white matter signal. Normal size of the ventricles and extra-axial spaces for the patient''s age. Normal bilateral basal ganglia. Normal thalami. There is no extra-axial fluid accumulation. Normal flow voids within the major intracranial circulation suggesting patency by spin echo criteria. Normal sella turcica, pituitary gland, infundibular stalk, optic chiasm and hypothalamus. Normal tectal plate and pineal gland. Normal midbrain, irasema and medulla. Normal cerebellum. Normal basal cisterns. MRI/Brain W/WO Contrast IMPRESSION: 8 mm left frontal enhancing lesion. Differential considerations include neoplastic disease and active multiple sclerosis lesion. Electronically Signed: Daniele Millan MD at 12:24 EST Tel , Service support ,
[2020-11-30] MEDS: Potassium Chloride Oral Tablet 20 MEQ 60 MEQ PO (08:12)
[2020-11-30] MEDS: Lisinopril 10 MG Tablet PO (08:16)
[2020-11-30] MEDS: Enoxaparin 40 MG/0.4 ML Syringe SC ×2 (08:16→21:53)
[2020-11-30 08:25] LABS: Bedside Glucose 227 mg/dL (70-110)
--- NOTE | 2020-11-30 10:34 | CASEMGMT ---
Pt with hx of DM 7-8 years ago but made lifestyle changes and improved at that time. Pt to be sent home with script for new glucometer/supplies as well as kwikpens/needles. CM to follow for any further discharge planning/needs. Maddison MCMAHAN CM
[2020-11-30 11:15] LABS: Bedside Glucose 283 mg/dL (70-110)
[2020-11-30] MEDS: ALPRAZolam 0.5 MG Tablet PO (13:11)
--- NOTE | 2020-11-30 13:20 | PN_ITS ---
<DidierCydney CLINICAL SUPPORT TECH - Last Filed: 11/30/20 13:25> Patient Problems: Active and Suspected Problems Syncope (Acute) Hyperglycemia (Acute) Subjective: Patient seen and examined. Denies further right hand symptoms. Denies dizziness, lightheadedness, presyncope. Discussed with patient and patient's MRI findings of 8 mm left frontal lesion. Discussed plan of care including further imaging and repeat SOC consult. - Physical Exam Vitals/I&O's: Vital Signs Temp Pulse Resp BP Pulse Ox 99.2 F H 90 18 151/93 H 97 11/30/20 08:15 11/30/20 08:15 11/30/20 08:15 11/30/20 08:15 11/30/20 08:15 Oxygen Delivery Method Room Air Weight: 311 lb 11.738 oz Body Mass Index (BMI) 38.9 Intake and Output for Last 24 Hours 11/28/20 11/29/20 11/30/20 23:59 23:59 23:59 Intake Total 3716.67 / 3716.67 1705.83 / 1705.83 Balance 3716.67 / 3716.67 1705.83 / 1705.83 General: Alert, Oriented x3, Cooperative HEENT: Atraumatic, PERRLA, EOMI, Normocephalic Neck: Supple, No JVD, Negative Carotid Bruits Lungs: Clear to auscultation, Normal air movement Cardiovascular: Regular rate, No murmurs Abdomen: Bowel Sounds Present, Soft, Non Tender, Non-Distended, Obese Extremities: No clubbing, No cyanosis, No edema, Capillary Refill Less than 3 Seconds Skin: No rashes, No breakdown Musculoskeletal: No Tenderness to Palpation of Joints or Extremities Neurological: Cranial nerves II-XII grossly intact, Neuro grossly intact Psych/Mental Status: Normal Affect, Appropriate Laboratory Results 11/29/20 17:48: POC Glucose 252 H 11/29/20 22:41: POC Glucose 298 H 11/30/20 05:20: WBC 6.4, RBC 4.46 L, Hgb 13.4, Hct 40.7, MCV 91.3, MCH 30.0, MCHC 32.9, RDW Std Deviation 41.9, RDW Coeff of Hardik 12.7, Plt Count 320, MPV 9.6, Immature Gran % (Auto) 0.500, Neut % (Auto) 44.3 L, Lymph % (Auto) 40.8, [place] % (Auto) 10.3 H, Eos % (Auto) 3.0, Baso % (Auto) 1.1 H, Absolute Neuts (auto) 2.8, Absolute Lymphs (auto) 2.61, Nucleated RBC % 0 11/30/20 05:20: Sodium 139, Potassium 3.4 L, Chloride 108 H, Carbon Dioxide 2 3.0, Anion Gap 8, BUN 12, Creatinine 0.66 L, Estim Creat Clear Calc 186.71, Est GFR (MDRD) Af Amer 175, Est GFR (MDRD) Non-Af 145, BUN/Creatinine Ratio 18.1, Glucose 224 H, Calcium 8.5, Total Bilirubin 0.40, AST 9 L, ALT 23, Alkaline Phosphatase 47, Total Protein 6.1 L, Albumin 2.7 L, Globulin 3.4, Albumin/Globulin Ratio 0.8 L 11/30/20 06:19: POC Glucose 238 H 11/30/20 08:10: POC Glucose 227 H 11/30/20 11:05: POC Glucose 283 H Current Medications Acetaminophen (Acetaminophen 325 Mg Tablet) 650 mg PO Q6H PRN PRN PRN Reason: Pain Score 1-10/Temp > 100.7 F Last Admin: 11/29/20 22:38 Dose: 650 mg Documented by: Alprazolam (Alprazolam 0.5 Mg Tablet) 0.5 mg PO BID PRN PRN PRN Reason: ANXIETY Last Admin: 11/30/20 13:11 Dose: 0.5 mg Documented by: Dextrose (Dextrose 50%-Water 25 Gm/50 Ml Disp.Syrin) 0 gm IV X1 PRN; Protocol PRN Reason: Hypoglycemia Enoxaparin Sodium (Enoxaparin 40 Mg/0.4 Ml Syringe) 40 mg SC BID MADALYN Last Admin: 11/30/20 08:16 Dose: 40 mg Documented by: Glucagon (Glucagon 1 Mg/Ml Syringe) 1 mg IM .X1 PRN PRN Reason: Hypoglycemia Sodium Chloride () 1,000 mls @ 125 mls/hr IV .Q8H [facility] Last Infusion: 11/30/20 11:10 Dose: 125 mls/hr Documented by: Insulin Glargine (Insulin Glargine 100 Units/Ml Pen) 20 units SC DINNER [facility] Last Admin: 11/29/20 17:49 Dose: 20 units Documented by: Insulin Human Lispro (Insulin Lispro 100 Unit/Ml Insuln.Pen) 0 unit SC ACHS [facility]; Protocol Last Admin: 11/30/20 11:06 Dose: 6 units Documented by: Insulin Human Lispro (Insulin Lispro 100 Unit/Ml Insuln.Pen) 5 unit SC TIDAC [facility] Last Admin: 11/30/20 11:06 Dose: 5 units Documented by: Labetalol HCl (Labetalol (Prefilled) 20 Mg/4 Ml) 10 mg IV Q6 PRN PRN Reason: SBP > 160 OR DBP > 120 Lisinopril (Lisinopril 10 Mg Tablet) 10 mg PO DAILY [facility] Last Admin: 11/30/20 08:16 Dose: 10 mg Documented by: Ondansetron HCl (Ondansetron 4 Mg/2 Ml Vial) 4 mg IV Q8H PRN PRN PRN Reason: NAUSEA/VOMITING Sodium Chloride (0.9% Saline Lock 10 Ml Syringe) 10 - 40 ml IV UD PRN PRN Reason: SALINE FLUSH Medical Necessity - Tobacco Use Smoking Status: Never smoker Assessment/Plan All Active Problems Syncope (Acute) Hyperglycemia (Acute) 1. 8 mm left frontal brain lesion-discussed with oncology. Will obtain further imaging including CT of chest/abdomen/pelvis with contrast. Pending further imaging will reconsult SOC neurology as MRI of brain findings report neoplastic disease versus active MS. 2. Syncope-unclear if related to #1. Troponin negative. No arrhythmias on telemetry. Echocardiogram demonstrates an EF of 65%. EEG unremarkable. Abnormal MRI as noted above. 3. Type 2 diabetes mellitus, uncontrolled-previously on medications however was taken off due to significant weight loss. Patient has since gained weight back. Hemoglobin A1c 10.5%. Sliding scale insulin and Lantus. Will need insulin, glucometer, testing supplies at discharge. Rx for Lantus, sliding scale insulin and glucometer/testing supplies have already been sent to pharmacy. 4. Hypertension-stable, continue lisinopril. 5. Morbid obesity-diet and lifestyle modifications encouraged. 6. Anxiety-on as needed Xanax. DVT prophylaxis-Lovenox subcu This patient was seen by COLUMBA Santoro under the supervision of Dr. Paiz. <Josefa Pazi - Last Filed: 11/30/20 15:28> - Physical Exam Vitals/I&O's: Vital Signs Temp Pulse Resp BP Pulse Ox 98.4 F 102 H 16 170/97 H 97 11/30/20 14:15 11/30/20 14:15 11/30/20 14:15 11/30/20 14:15 11/30/20 14:15 Oxygen Delivery Method Room Air Weight: 141.4 kg Body Mass Index (BMI) 38.9 Intake and Output for Last 24 Hours 11/28/20 11/29/20 11/30/20 23:59 23:59 23:59 Intake Total 3716.67 / 3716.67 1705.83 / 1705.83 Balance 3716.67 / 3716.67 1705.83 / 1705.83 Laboratory Results 11/29/20 17:48: POC Glucose 252 H 11/29/20 22:41: POC Glucose 298 H 11/30/20 05:20: WBC 6.4, RBC 4.46 L, Hgb 13.4, Hct 40.7, MCV 91.3, MCH 30.0, MCHC 32.9, RDW Std Deviation 41.9, RDW Coeff of Hardik 12.7, Plt Count 320, MPV 9.6, Immature Gran % (Auto) 0.500, Neut % (Auto) 44.3 L, Lymph % (Auto) 40.8, [place] % (Auto) 10.3 H, Eos % (Auto) 3.0, Baso % (Auto) 1.1 H, Absolute Neuts (auto) 2.8, Absolute Lymphs (auto) 2.61, Nucleated RBC % 0 11/30/20 05:20: Sodium 139, Potassium 3.4 L, Chloride 108 H, Carbon Dioxide 23.0, Anion Gap 8, BUN 12, Creatinine 0.66 L, Estim Creat Clear Calc 186.71, Est GFR (MDRD) Af Amer 175, Est GFR (MDRD) Non-Af 145, BUN/Creatinine Ratio 18.1, Glucose 224 H, Calcium 8.5, Total Bilirubin 0.40, AST 9 L, ALT 23, Alkaline Phosphatase 47, Total Protein 6.1 L, Albumin 2.7 L, Globulin 3.4, Albumin/Globulin Ratio 0.8 L 11/30/20 06:19: POC Glucose 238 H 11/30/20 08:10: POC Glucose 227 H 11/30/20 11:05: POC Glucose 283 H Current Medications Acetaminophen (Acetaminophen 325 Mg Tablet) 650 mg PO Q6H PRN PRN PRN Reason: Pain Score 1-10/Temp > 100.7 F Last Admin: 11/29/20 22:38 Dose: 650 mg Documented by: Alprazolam (Alprazolam 0.5 Mg Tablet) 0.5 mg PO BID PRN PRN PRN Reason: ANXIETY Last Admin: 11/30/20 13:11 Dose: 0.5 mg Documented by: Dextrose (Dextrose 50%-Water 25 Gm/50 Ml Disp.Syrin) 0 gm IV X1 PRN; Protocol PRN Reason: Hypoglycemia Enoxaparin Sodium (Enoxaparin 40 Mg/0.4 Ml Syringe) 40 mg SC BID [facility] Last Admin: 11/30/20 08:16 Dose: 40 mg Documented by: Glucagon (Glucagon 1 Mg/Ml Syringe) 1 mg IM .X1 PRN PRN Reason: Hypoglycemia Sodium Chloride () 1,000 mls @ 125 mls/hr IV .Q8H [facility] Last Infusion: 11/30/20 11:10 Dose: 125 mls/hr Documented by: Insulin Glargine (Insulin Glargine 100 Units/Ml Pen) 20 units SC DINNER [facility] Last Admin: 11/29/20 17:49 Dose: 20 units Documented by: Insulin Human Lispro (Insulin Lispro 100 Unit/Ml Insuln.Pen) 0 unit SC ACHS [facility]; Protocol Last Admin: 11/30/20 11:06 Dose: 6 units Documented by: Insulin Human Lispro (Insulin Lispro 100 Unit/Ml Insuln.Pen) 5 unit SC TIDAC [facility] Last Admin: 11/30/20 11:06 Dose: 5 units Documented by: Labetalol HCl (Labetalol (Prefilled) 20 Mg/4 Ml) 10 mg IV Q6 PRN PRN Reason: SBP > 160 OR DBP > 120 Last Admin: 11/30/20 14:19 Dose: 10 mg Documented by: Lisinopril (Lisinopril 10 Mg Tablet) 10 mg PO DAILY [facility] Last Admin: 11/30/20 08:16 Dose: 10 mg Documented by: Ondansetron HCl (Ondansetron 4 Mg/2 Ml Vial) 4 mg IV Q8H PRN PRN PRN Reason: NAUSEA/VOMITING Sodium Chloride (0.9% Saline Lock 10 Ml Syringe) 10 - 40 ml IV UD PRN PRN Reason: SALINE FLUSH Last Admin: 11/30/20 14:19 Dose: 10 ml Documented by: Assessment/Plan This patient was seen in conjunction with Cydney Velásquez CLINICAL SUPPORT TECH. I have independently interviewed and examined the patient and reviewed pertinent historical, laboratory, and other data. Please refer to her note for patient's presentation, findings, and recommendations. Patient was seen and examined. He feels well. MRI brain showed left 8mm frontal mass, suggestive of neoplasm. Denied any dizziness or palpitations or shortness of breath. No acute events overnight. Vitals were reviewed -stable Physical Exam: Gen: Comfortable, not pale, not jaundiced, alert oriented x3 CVS:HS I +II, regular, no murmurs RESP: CTA GI: BS present and normal, nontender, no palpable organs EXT:No edema Labs reviewed: ASSESSMENT: 1. Newly diagnosed frontal mass, suggestive of neoplasm 2. Syncope 3. Possible seizure 4. Type II DM, uncontrolled 5. Hypertension 6. Morbid obesity 7. Anxiety disorder 8. Hypokalemia Meds reviewed Plan: Will get CT scan of neck, chest, abd/pelvis Continue on IVF Repeat SOC consult Depending on findings; patient will be transferred for neurosurgery evaluation Increase lantus to 25 units QHS Hold Lisinopril Replace potassium Inpatient E&M: 29070 [facility] L3
--- NOTE | 2020-11-30 13:25 | CT_ITS ---
STUDY: CT CHEST, ABDOMEN T PELVIS WITH CONTRAST REASON FOR EXAM: Male, 35 years old. Left frontal lobe brain lesion. Evaluation for primary malignancy TECHNIQUE: Transaxial imaging was performed following intravenous administration of Oral and amp; IV Gastrografin and amp; 100mL Isovue-300. Individualized dose optimization techniques were used for this CT. COMPARISON: Chest radiograph of 11/29/[address] exam of 03/21/2013 FINDINGS: CHEST The lungs are normal. There is no demonstrated pleural abnormality. Normal heart and pericardium. Normal mediastinum. Normal hilar regions. Normal unenhanced pulmonary arteries. Normal aorta arch and descending thoracic aorta. Normal osseous structures. Negative for osteolytic or blastic bone lesions. Negative for axillary adenopathy or mass of the soft tissues. ABDOMEN Normal liver. Normal gallbladder and extrahepatic biliary system. Normal spleen. Normal pancreas. Normal bilateral adrenal glands. Normal right kidney. Normal left kidney. Normal visualized stomach. Normal small intestine. Normal colon. The appendix is visualized and appears normal. Minimal calcific plaque of the aorta. Normal inferior vena cava. Normal retroperitoneum. Normal abdominal wall. Negative for osteolytic or blastic bone lesions. PELVIS Normal urinary bladder. Normal visualized small intestine. Normal visualized colon. There is no pelvic fluid. There is no pelvic lymphadenopathy or mass lesion. Minimal arterial calcification. Minimal fatty left inguinal hernia. Normal osseous structures. CT/CT Chest, Abd, Pel w/Contrast IMPRESSION: Negative for evidence of malignancy. Minimal atherosclerotic changes. Minimal fatty left inguinal hernia Electronically Signed: Shira Blackburn MD at 16:44 EST , Service support ,
--- NOTE | 2020-11-30 13:51 | CT_ITS ---
STUDY: CT SOFT TISSUE NECK WITH CONTRAST REASON FOR EXAM: Male, 35 years old. Brain mass. Evaluation for primary malignancy. RADIATION DOSAGE (If Supplied By Facility): CTDIvol = ( 34.67 ) mGy, DLP = ( 3672.85 ) mGycm TECHNIQUE: The patient was scanned in a multi-detector CT scanner. High resolution transaxial imaging was performed following intravenous administration of Oral and amp; IV Gastrografin and amp; 100mL Isovue-300. Sagittal and coronal images were reconstructed. Individualized dose optimization techniques were used for this CT. COMPARISON: Prior neck CT of 03/19/2013 FINDINGS: Normal bilateral parotid glands. Normal bilateral sales and service officer spaces. Normal bilateral parapharyngeal spaces. Normal bilateral carotid spaces. Normal bilateral sublingual and submandibular glands and spaces. Normal visualized nasopharynx. Adenoidal tissue has returned to a normal thickness. Normal retropharyngeal space. Normal perivertebral space. Normal visualized bilateral faucial tonsils. The visualized tongue, tongue base and oropharynx are normal. The visualized cervical lymph nodes (levels I-) are within normal size limits, and maintain normal morphology. There is no demonstrated solid or cystic mass lesion. There is no abnormal contrast enhancement. Normal epiglottis, bilateral vallecula and hypopharynx. The pre-epiglottic and paraglottic adipose spaces are normal. Normal visualized bilateral piriform sinuses, aryepiglottic folds, vocal cords, and arytenoid-cricoid articulations. Normal subglottic trachea. Normal bilateral lobes of the thyroid gland. Normal visualized pulmonary apices. Substantial improvement in sinus disease since the prior exam. There are still areas of mucosal thickening primarily in the posterior ethmoid sinuses bilaterally. There is a 11 mm smooth round soft tissue mass in the right nasal cavity juxtapose the base of the inferior turbinate which is increased modestly from the prior exam and likely represent a nasal polyp. Normal visualized cervical spine. CT/Soft Tissue Neck WITH Contrast IMPRESSION: Essentially normal soft tissues of the neck. Adenoidal soft tissue has returned to a normal thickness and lymph nodes have decreased in size since a prior exam of 03/19/2013. Substantial improvement in sinus disease since the prior exam. There remains mucosal thickening in posterior ethmoid sinuses. There is a 11 mm smooth round soft tissue mass in the right nasal cavity juxtapose the base of the inferior turbinate which is increased moderately in size from the prior exam and likely represents a benign nasal polyp. Electronically Signed: Shira Blackburn MD at 16:56 EST , Service support ,
[2020-11-30] MEDS: Labetalol (Prefilled) 20 MG/4 ML 10 MG IV (14:19)
[2020-11-30] MEDS: 0.9% Saline Lock 10 ML Syringe IV (14:19)
--- NOTE | 2020-11-30 14:40 | CASEMGMT ---
According to the [facility] insurance website, the following are in-network tertiary facilities: [facility], [place], [facility], [facility], [facility], [employer], and . Maddison MCMAHAN CM
--- NOTE | 2020-11-30 15:50 | CHAPLAIN ---
Type of Pastoral Visit _x__ Initial Visit ___ Follow-up Visit ___ On-call Visit ___ General Patient Visit ___ Spiritual Assessment ___ Family Conference ___ Bereavement ___ Rapid Response ___ Code Blue ___ Other (describe below) Pastoral Care Referral From ___ Patient ___ Family _x__ Nurse ___ Physician ___ Business Objects Consultant _x__ Illusionist ___ Other (describe below) Sacrament/Intervention _x__ Active listening ___ Anointing ___ Jehovah'S Witness ___ Bereavement ___ Communion ___ Leila exploration ___ _x__ Life review _x__ Prayer ___ Reconciliation ___ Sacrament of Sick _x__ Supportive presence ___ Wedding ___ Other (describe below) Pastoral Comments referral due to patient having new tests results that will require further testing and possible illness; spouse is with pt; both explain several other major health and grief stress factors in their lives right now; pt and spouse open to talking, support, and prayer
[2020-11-30 16:35] LABS: Bedside Glucose 324 mg/dL (70-110)
[2020-11-30] MEDS: levETIRAcetam 500 MG Tablet PO (21:53)
--- NOTE | 2020-11-30 23:00 | NURSING ---
SIGNIFICANT TIME SPENT W/PT & SPOUSE REVIEWING KEPPRA CONTRAINDICATIONS, SIDE EFFECTS, ETC. SPOUSE STAYED W/PT FOR 60M POST-ADMINISTRATION TO MONITOR FOR S/SXS OF ALLERGIC REACTION.
[2020-11-30 23:16] LABS: Bedside Glucose 334 mg/dL (70-110)
[2020-12-01 03:00] VITALS: PULSE 81
[2020-12-01 03:43] VITALS: BP 159/97; PULSE 85; RESP 18; TEMP 36.6; O2SAT 97
[2020-12-01] MEDS: Insulin Lispro 100 UNIT/ML INSULN.PEN SC ×4 (06:58→11:08)
[2020-12-01 07:00] VITALS: PULSE 82
[2020-12-01 07:06] LABS: Bedside Glucose 213 mg/dL (70-110)
[2020-12-01] MEDS: 0.9% Normal Saline 1,000 ML 75 ML IV (07:51)
[2020-12-01 08:00] VITALS: O2SAT 98
[2020-12-01 08:01] LABS: Bedside Glucose 221 mg/dL (70-110)
[2020-12-01 08:20] LABS: ALB/GLOB Ratio 0.8 RATIO (0.9-2.4); AST(SGOT) 14 U/L (15-37); Alanine Aminotransfer ALT/SGPT 28 U/L (16-61); Albumin, Serum 2.9 g/dL (3.2-5.0); Alkaline Phosphatase 50 U/L (45-117); Anion Gap 6 (5-15); BUN 10 mg/dL (7-18); BUN/Creat Ratio 15.3 RATIO (10-20); Chloride 108 mmol/L (98-107); Creatinine, Serum 0.65 mg/dL (0.70-1.30); EST Glomerular Filtration Rate 148 mL/min (>60); Est Glom Filt Rate - Afr Amer 179 mL/min (>60); Estimated Creatinine Clearance 189.58 ml/min; Globulin 3.5 g/dL (2.2-4.2); Glucose 230 mg/dL (74-106); Potassium 3.7 mmol/L (3.5-5.1); Protein, Total 6.4 g/dL (6.4-8.2); Sodium Level 141 mmol/L (136-145)
--- NOTE | 2020-12-01 08:40 | PCM.DC ---
- Discharge Diagnoses Current Active Problems: Current Active and Chronic Problems Diabetes (Chronic) Anxiety (Chronic) Hypertension (Chronic) Syncope (Acute) Hyperglycemia (Acute) Reason(s) for Visit for Discharge Instructions: Syncope, Type 2 DM You will use the following diet at home:: Calorie/Carbohydrate Controlled (specify 1200, 1400, etc) - 1800 calories, Cardiac Your food should be the consistency of: Regular Your liquids should be the consistency of: Regular/Thin Discharge Activity: Return to Normal Activity Additional Instructions: Continue to keep yourself hydrated. Continue to monitor your blood sugars before meals. Continue on your insulin. Follow a low-fat, low-salt, low-calorie diet. Follow-up with your primary care doctor within 1 to 2 weeks with repeat blood work. You have been referred to see Dr. Levin, neurology, in the outpatient. You are not allowed to drive or operate any heavy machinery until you have been evaluated by the neurologist in the outpatient and have been 6 months seizure-free. Allergies/Adverse Reactions: Allergies ibuprofen Adverse Reaction (Verified 11/29/20 01:56) Shortness of breath Medications to take at Discharge Insulin Lispro [Humalog KwikPen] See Protocol CO ACHS #1 box 11/29/20 Lorazepam 1 mg PO PRN PRN 11/29/20 Pen Needle, Diabetic [Pen [place]] 1 ea ACHS #1 box 11/29/20 Insulin Glargine [Lantus SoloStar Pen] 30 units SC DINNER 30 Days #1 pen 12/01/20 Insulin Lispro [Humalog KwikPen] 5 unit SC TIDAC 30 Days #1 insuln.pen 12/01/20 Lisinopril [Zestril] 20 mg PO DAILY 30 Days #30 tab 12/01/20 levETIRAcetam tablet [Keppra tablet] 500 mg PO BID 30 Days #60 tab 12/01/20 The following prescriptions were given: Insulin Lispro [Humalog KwikPen] See Protocol CO ACHS #1 box [facility] Insulin Lispro [Humalog KwikPen] 5 unit SC TIDAC 30 Days #1 insuln.pen Transmission Status: [facility] levETIRAcetam tablet [Keppra tablet] 500 mg PO BID 30 Days #60 tab Transmission Status: [facility] Insulin Glargine [Lantus SoloStar Pen] 30 units SC DINNER 30 Days #1 pen Transmission Status: Pending to [facility] Pen Needle, Diabetic [Pen [place]] 1 ea MC ACHS #1 box Transmission Status: Received by [facility] Lisinopril [Zestril] 20 mg PO DAILY 30 Days #30 tab Transmission Status: Pending to [facility] Orders to be completed after discharge: Glucometer Location: None Selected Glucometer Location: None Selected Novofine Autocover 30G Needle Location: None Selected Primary Care Physician: Brad Lipscomb MD [Primary Care Provider] - Please follow up with your Primary Care Physician in: within 1-2 weeks Test Results: Test results from this visit will be discussed in further detail at your follow-up appointment, if applicable. Please Follow Up With: Brent Levin MD When: in 1-2 weeks Proposed Discharge Date: 12/01/20
--- NOTE | 2020-12-01 08:43 | DS.PCM_ITS ---
Discharge Date and Diagnosis - Problem List Patient Problems: Active and Suspected Problems Syncope (Acute) Hyperglycemia (Acute) Date of Admission: 11/29/20 Date of Discharge: 12/01/20 - Primary Discharge Diagnosis Acute Problems: Active Problems 1. Newly diagnosed frontal mass, unclear etiology for now 2. Syncope 3. Probable seizure 4. Type II DM, uncontrolled 5. Hypertension 6. Morbid obesity, BMI 39 7. Anxiety disorder 8. Hypokalemia - Secondary Discharge Diagnosis Chronic Problems: Chronic Problems Diabetes (Chronic) Anxiety (Chronic) Hypertension (Chronic) Hospital Course and Treatment Imaging Results: Clinical Impression(s) from Imaging Studies Chest X-Ray 11/29/20 02:05 IMPRESSION: Normal x-ray examination of the chest. Electronically Signed: Abdulaziz York DO at 2:31 EST Tel , Service support , Brain MRI 11/30/20 07:20 IMPRESSION: 8 mm left frontal enhancing lesion. Differential considerations include neoplastic disease and active multiple sclerosis lesion. Electronically Signed: Daniele Millan MD at 12:24 EST Tel , Service support , ADDENDUM: 11/30/20 1238 IMPRESSION: 8 mm left frontal enhancing lesion. Differential considerations include neoplastic disease and active multiple sclerosis lesion. N.B. : The above information has been verbally conveyed by Daniele Millan MD to Cydney Velásquez NP, on 11/30/2020 12:31:12 (ET). Electronically Signed: Daniele Millan MD at 12:24 EST Tel , Service support , Chest/Abdomen/Pelvis CT 11/30/20 13:25 IMPRESSION: Negative for evidence of malignancy. Minimal atherosclerotic changes. Minimal fatty left inguinal hernia Electronically Signed: Shira Blackburn MD at 16:44 EST , Service support , Soft Tissue Neck CT 11/30/20 13:51 IMPRESSION: Essentially normal soft tissues of the neck. Adenoidal soft tissue has returned to a normal thickness and lymph nodes have decreased in size since a prior exam of 03/19/2013. Substantial improvement in sinus disease since the prior exam. There remains mucosal thickening in posterior ethmoid sinuses. There is a 11 mm smooth round soft tissue mass in the right nasal cavity juxtapose the base of the inferior turbinate which is increased moderately in size from the prior exam and likely represents a benign nasal polyp. Electronically Signed: Shira Blackburn MD at 16:56 EST , Service support , Tele-neurology Operations: None Procedures: 2-D Echocardiogram Summary of Care Provided: The patient is a 35 year old M past medical history of hypertension, type II DM, on Metformin who comes in after syncopal episode. Patient reportedly was bending down to do some house chores. He felt that his right hand was frozen, had tingling numbness sensation going down his. He subsequently developed a headache. He shouted for his and then became unresponsive. His found him on the ground, called the paramedics and was instructed to do CPR. According to the , patient had some shaking spells that were more in the upper extremities. He had bowel and bladder incontinence. Patient woke up soon and was able to push his away. By the time the paramedics got to his house, he was alert and oriented. Admitted to having some stress relating to his father passing away September 2020 as well as a recent family member being diagnosed with cancer. Patient was found to have uncontrolled blood sugars. His HbA1c is 10.5%. He was started on Lantus and premeal Lispro. He was seen by Tele-neurology and mita mmended to have an MRI of the brain. Findings showed a 8mm frontal brain lesion suggestive of possible neoplastic disease. CT of chest, neck, abdomen and pelvis were however unremarkable. Tele-neurology was reconsulted and recommended Keppra and outpatient neurology. Patient Problems: Active and Suspected Problems Syncope (Acute) Hyperglycemia (Acute) Subjective: On the day of discharge, patient was seen and examined. He felt improved. No seizures seen in this hospital stay. Denied any dizziness or palpitations. Objective: Physical Exam: Gen: Comfortable, not pale, not jaundiced, alert oriented x3 CVS:HS I +II, regular, no murmurs RESP: CTA GI: BS present and normal, nontender, no palpable organs EXT:No edema - Physical Exam Vitals/I&O's: Vital Signs Temp Pulse Resp BP Pulse Ox 97.9 F 82 18 159/97 H 98 12/01/20 03:43 12/01/20 07:00 12/01/20 03:43 12/01/20 03:43 12/01/20 08:00 Oxygen Delivery Method Room Air Weight: 141.4 kg Body Mass Index (BMI) 38.9 Intake and Output for Last 24 Hours 11/29/20 11/30/20 12/01/20 23:59 23:59 23:59 Intake Total 3716.67 / 3716.67 2679.99 / 2679.99 984.17 / 984.17 Balance 3716.67 / 3716.67 2679.99 / 2679.99 984.17 / 984.17 Laboratory Results 11/30/20 11:05: POC Glucose 283 H 11/30/20 16:20: POC Glucose 324 H 11/30/20 21:46: POC Glucose 334 H 12/01/20 06:57: POC Glucose 213 H 12/01/20 07:53: POC Glucose 221 H 12/01/20 07:54: Sodium 141, Potassium 3.7, Chloride 108 H, Carbon Dioxide 27.0, Anion Gap 6, BUN 10, Creatinine 0.65 L, Estim Creat Clear Calc 189.58, Est GFR (MDRD) Af Amer 179, Est GFR (MDRD) Non-Af 148, BUN/Creatinine Ratio 15.3, Glucose 230 H, Calcium 9.0, Total Bilirubin 0.40, AST 14 L, ALT 28, Alkaline Phosphatase 50, Total Protein 6.4, Albumin 2.9 L, Globulin 3.5, Albumin/Globulin Ratio 0.8 L Current Medications Acetaminophen (Acetaminophen 325 Mg Tablet) 650 mg PO Q6H PRN PRN PRN Reason: Pain Score 1-10/Temp > 100.7 F Last Admin: 11/29/20 22:38 Dose: 650 mg Documented by: Alprazolam (Alprazolam 0.5 Mg Tablet) 0.5 mg PO BID PRN PRN PRN Reason: ANXIETY Last Admin: 11/30/20 13:11 Dose: 0.5 mg Documented by: Dextrose (Dextrose 50%-Water 25 Gm/50 Ml Disp.Syrin) 0 gm IV X1 PRN; Protocol PRN Reason: Hypoglycemia Enoxaparin Sodium (Enoxaparin 40 Mg/0.4 Ml Syringe) 40 mg SC BID [facility] Last Admin: 11/30/20 21:53 Dose: 40 mg Documented by: Glucagon (Glucagon 1 Mg/Ml Syringe) 1 mg IM .X1 PRN PRN Reason: Hypoglycemia Insulin Glargine (Insulin Glargine 100 Units/Ml Pen) 30 units SC DINNER [facility] Insulin Human Lispro (Insulin Lispro 100 Unit/Ml Insuln.Pen) 0 unit SC ACHS [facility]; Protocol Last Admin: 12/01/20 06:58 Dose: 4 units Documented by: Insulin Human Lispro (Insulin Lispro 100 Unit/Ml Insuln.Pen) 5 unit SC TIDAC [facility] Last Admin: 12/01/20 07:53 Dose: 5 units Documented by: Labetalol HCl (Labetalol (Prefilled) 20 Mg/4 Ml) 10 mg IV Q6 PRN PRN Reason: SBP > 160 OR DBP > 120 Last Admin: 11/30/20 14:19 Dose: 10 mg Documented by: Levetiracetam (Levetiracetam 500 Mg Tablet) 500 mg PO BID [facility] Last Admin: 11/30/20 21:53 Dose: 500 mg Documented by: Lisinopril (Lisinopril 20 Mg Tablet) 20 mg PO DAILY [facility] Ondansetron HCl (Ondansetron 4 Mg/2 Ml Vial) 4 mg IV Q8H PRN PRN PRN Reason: NAUSEA/VOMITING Sodium Chloride (0.9% Saline Lock 10 Ml Syringe) 10 - 40 ml IV UD PRN PRN Reason: SALINE FLUSH Last Admin: 11/30/20 14:19 Dose: 10 ml Documented by: Discharge Diet: Low fat/ Low Cholesterol, 2000 mg Sodium Diet Discharge Activity: Return to Normal Activity Home Medications: Medications to take at Discharge Insulin Lispro [Humalog KwikPen] See Protocol [facility] #1 box 11/29/20 Lorazepam 1 mg PO PRN PRN 11/29/20 Pen Needle, Diabetic [Pen [place]] 1 ea ACHS #1 box 11/29/20 Insulin Glargine [Lantus SoloStar Pen] 30 units SC DINNER 30 Days #1 pen 0 12/01/20 Insulin Lispro [Humalog KwikPen] 5 unit SC TIDAC 30 Days #1 insuln.pen 12/01/20 Lisinopril [Zestril] 20 mg PO DAILY 30 Days #30 tab 12/01/20 levETIRAcetam tablet [Keppra tablet] 500 mg PO BID 30 Days #60 tab 12/01/20 Following Prescriptions Were Given to Patient: Insulin Lispro [Humalog KwikPen] See Protocol [place] [facility]CH[facility] #1 box Transmission Status: Received by [facility] 181 Insulin Lispro [Humalog KwikPen] 5 unit SC TIDAC 30 Days #1 insuln.pen Transmission Status: Received by [facility] 181 levETIRAcetam tablet [Keppra tablet] 500 mg PO BID 30 Days #60 tab Transmission Status: Received by [facility] 181 Insulin Glargine [Lantus SoloStar Pen] 30 units SC DINNER 30 Days #1 pen Transmission Status: Received by [facility] 1812 Pen Needle, Diabetic [Pen [place]] 1 ea ACHS #1 box Transmission Status: Received by [facility] 181 Lisinopril [Zestril] 20 mg PO DAILY 30 Days #30 tab Transmission Status: Received by [facility] 1812 Other Amb Orders: Glucometer Location: None Selected Glucometer Location: None Selected Novofine Autocover 30G Needle Location: None Selected Primary Care Physician: Brad Lipscomb MD [Primary Care Provider] - Please follow up with your Primary Care Physician in: within 1-2 weeks Please Follow Up With: Brent Levin MD When: in 1-2 weeks Disposition: Home Minutes spent on discharge:: 40 Patient Condition:: Stable Medical Necessity - Tobacco Use Smoking Status: Never smoker Tobacco Use: Non-smoker Meaningful Use Info Meaningful Use Diagnoses (Choose all that apply): None applicable OBSV E&M: 72228 Observation care discharge
[2020-12-01 09:00] VITALS: BP 161/93; PULSE 95; RESP 18; TEMP 36.7; O2SAT 98
[2020-12-01] MEDS: Lisinopril 20 MG Tablet PO (09:02)
[2020-12-01] MEDS: levETIRAcetam 500 MG Tablet PO (09:02)
[2020-12-01] MEDS: Enoxaparin 40 MG/0.4 ML Syringe SC (09:02)
--- NOTE | 2020-12-01 11:18 | PHA.DC.MC ---
Pharmacy Service has performed discharge medication reconciliation and counseling for this patient. The patient was counseled on the following discharge medications and changes in medications for homegoing were reviewed. 1. LANTUS 2. HUMALOG 3. KEPPRA 4. LISINOPRIL - INCREASED HOME DOSE The Reason for Use, instructions for use, and potential side effects were reviewed for all new medications. The patient's questions regarding all of their medications were answered. The patient was able to verbally demonstrate an understanding of their discharge medications. Also counseled patient on S/S hypoglycemia and hypoglycemia management Home Medications Insulin Lispro [Humalog KwikPen] See Protocol [place] ACHS #1 box 11/29/20 Lorazepam 1 mg PO PRN PRN 11/29/20 Pen Needle, Diabetic [Pen [place]] 1 ea ACHS #1 box 11/29/20 Insulin Glargine [Lantus SoloStar Pen] 30 units SC DINNER 30 Days #1 pen 12/01/20 Insulin Lispro [Humalog KwikPen] 5 unit SC TIDAC 30 Days #1 insuln.pen 12/01/20 Lisinopril [Zestril] 20 mg PO DAILY 30 Days #30 tab 12/01/20 levETIRAcetam tablet [Keppra tablet] 500 mg PO BID 30 Days #60 tab 12/01/20 The patient's discharge medication list was reviewed for discrepancies and discrepancies were resolved.
[2020-12-01 11:30] LABS: Bedside Glucose 304 mg/dL (70-110)
== END 2020-12-01 08:35 | disposition home or self-care (01) ==
LOC: ED 03:12 → PCU 03:43
PROVIDERS: Admitting Provider Hospitalist; Emergency Provider Emergency Medicine; PCP Family Medicine; Visit Provider Internal Medicine
DX: R55 Syncope and collapse (principal); E11.65 Type 2 diabetes mellitus with hyperglycemia; E66.01 Morbid (severe) obesity due to excess calories; I10 Essential (primary) hypertension; Z79.899 Other long term (current) drug therapy; F41.9 Anxiety disorder, unspecified; E87.6 Hypokalemia; Z68.41 Body mass index [BMI] 40.0-44.9, adult; G93.9 Disorder of brain, unspecified; Z79.4 Long term (current) use of insulin
CPT/HCPCS: 36415; 70491; 70553; 71045; 71260; 74177; 80048; 80053; 80076; 82009; 82550; 82962; 83036; 84100; 84146; 84484; 85025; 85379; 93005; 93306; 95819; 96361; 96372; 96374; 97802; 99218; 99285; A9575; J7030; Q9957; Q9967; A4216; C8929; G0378

== ENCOUNTER 2020-12-23 20:22 | Emergency (ER) | payer OTHER, SELFPAY ==
[2020-11-29 04:31] VITALS: BMI 38.9
[2020-12-23 20:25] VITALS: BP 199/119; PULSE 105; RESP 18; TEMP 36.8; O2SAT 95; BMI 41.1
--- NOTE | 2020-12-23 20:42 | ED.RN ---
c/o numbness/tingling in r hand that has now resolved.
--- NOTE | 2020-12-23 20:55 | ED.DCSUM_ITS ---
- ER Visit Summary Date of Service: 12/23/20 Chief Complaint: [Numbness and tingling to the right hand] History of Present Illness: The patient is a 35 M [presents to the emergency department complaint of numbness and tingling to the right hand that he has had off-and-on for the last 3 weeks. Patient states that 3 weeks ago he was admitted to the hospital because of a suspected seizure involving his right hand and arm. On MRI he was found to have some sort of an enhancing lesion left frontal brain which in the differential he was told he could be mass or malignancy. Patient went for a second opinion to [facility] had some specialized testing and repeat MRIs and was told that they felt that he did not have MS but rather some sort of a vascular issue and was ordered CTAs of the neck and head to be done later next week. Patient became concerned today when he had the numbness in the right wrist and into the right thumb that lasted about 7 minutes. Patient also states that has been quite anxious he and he is currently on Ativan. Patient states his father in September. Patient does have history of diabetes and hypertension. Patient currently on Vimpat.] Physical Examination: [HEENT-PERRLA, EOMI. Cranial nerves II through XII grossly intact. TMs clear. Mucous membranes moist. No adenopathy. Cardiovascular-regular rate and rhythm without murmur or ectopy Lungs-clear to auscultation, chest wall stable without crepitus or subcu emphysema Abdomen-normoactive bowel sounds, soft, nontender, no rebound or rigidity, no peritoneal signs. Neuro [id number] and heel talavera testing within normal limits, negative Romberg, negative for drift, fundi benign Extremities-intact ?4, normal range of motion, normal pulses, atraumatic] Test Results: [CBC with differential was normal. Chemistries unremarkable. Glucose was 217. CTA of head and neck obtained read by radiology as no significant occlusions and no evidence of dissection. The enhancing lesion seen on MRI was not seen on this study.] Emergency Department Course and Treatment: [Line established on arrival. Patient was placed on a yarn spinner. Patient continued to feel quite anxious and received a milligram of Ativan IV.] Treatment Plan: [At this point I feel patient can be safely discharged home. I do not believe patient is having stroke or TIA symptoms. Patient to continue his work-up and follow-up with his neurologist. He is to continue with his seizure medication as instructed. I feel there is a component of anxiety as well.] Disposition: [Discharged home in stable condition] Impression: [Paresthesias Hypertension Anxiety] This note was generated with [employer] software. It may contain incorrect words, spelling, and punctuation that were not noted in review of the chart prior to signing ED Disposition - Plan for ED Patient: Referrals: Brad Lipscomb MD [Primary Care Provider] -
--- NOTE | 2020-12-23 20:55 | CT_ITS ---
STUDY: CTA HEAD AND NECK WITH CONTRAST REASON FOR EXAM: Male, 35 years old. paraesthesias right hand, headache RADIATION DOSAGE (If Supplied By Facility): CTDIvol = ( 34.06 ) mGy, DLP = ( 1788.59 ) mGycm TECHNIQUE: CT angiography was performed with a multi-detector CT scanner. Data acquisition was obtained from the skull base through the vertex following intravenous administration of IV 100mL Isovue-370. MIP images were reconstructed from the axial data set. Post-processing of the angiographic images was performed, with multiplanar reformation and 3D reconstruction. Individualized dose optimization techniques were used for this CT. COMPARISON: MRI of the brain 11/30/2020. FINDINGS: Normal bilateral petrous carotid arteries. Normal right cavernous carotid artery with a normal supraclinoid bifurcation. Normal left cavernous carotid artery with a normal supraclinoid bifurcation. Normal right A1 segments of the anterior cerebral artery. Normal left A1 segments of the anterior cerebral artery. Normal intact anterior communicating artery (ACOM). Normal bilateral A2 segments of the anterior cerebral arteries. Normal right M1 and M2 segments of the middle cerebral arteries, with a normal M1 bifurcation. Normal left M1 and M2 segments of the middle cerebral arteries, with a normal M1 bifurcation. Posterior communicating arteries are not visualized consistent with normal variant Normal bilateral vertebral arteries. Normal basilar artery with a normal basilar bifurcation. The visualized bilateral superior cerebellar (SCA) arteries are normal. Normal bilateral P1, P2 and visualized P3 segments of the posterior cerebral arteries. There is no demonstrated aneurysm of the [place]. The small enhancing lesion in the left frontal parietal region on recent MRI is not visualized on this study AORTIC ARCH: Normal visualized aortic arch. Normal origins of the brachiocephalic, left common carotid, and left subclavian arteries. RIGHT CAROTID ARTERIES: Mild calcific plaquing of the distal right common carotid artery (CCA and right common carotid bulb. Normal origin of the right internal carotid (ICA) artery without a hemodynamically significant stenosis. Normal visualized cervical portion of the right internal carotid artery. Normal origin of the right external carotid artery (ECA). LEFT CAROTID ARTERIES: Normal left common carotid artery (CCA). Mild calcific plaquing of the left common carotid bulb. Mild calcific plaquing of the origin of the left internal carotid (ICA) artery without a hemodynamically significant stenosis. Normal visualized cervical portion of the left internal carotid artery. Normal origin of the left external carotid artery (ECA). VERTEBRAL ARTERIES: Normal bilateral vertebral arteries. CT/CTA Head AND Neck W/ Contrast IMPRESSION: Mild atherosclerotic changes of the brain and cervical carotids without evidence for hemodynamically significant stenosis utilizing NASCET criteria Electronically Signed: Ross Rojas MD at 22:51 EDT , Service support ,
[2020-12-23] MEDS: 0.9% Normal Saline 1,000 ML 150 ML IV (21:35)
[2020-12-23 21:42] LABS: Absolute Neutrophil Count 4.5 X10^3/uL (2.0-7.7); Basophil# 0.07 X10^3/uL; Basophil% 0.9 % (0-1); Eosinophil# 0.16 X10^3/uL; Hematocrit 42.2 % (40-54); Hemoglobin 14.4 g/dL (13.0-16.5); Lymphocyte % 29.3 % (19-41); Mean Corp Hgb Conc 34.1 g/dL (32-36); Mean Corpuscular Volume 87.9 fL (80-94); Mean Platelet Vol. 9.6 fl (6.2-12.0); Monocyte# 0.76 X10^3/uL; Monocyte% 9.7 % (0-10); NRBC Flagged by Analyzer 0 % (0-5); Neutrophil % 57.5 % (47-70); Platelet Count 379 K/mm3 (150-450); RBC Distribution Width CV 12.1 % (11.6-14.6); White Blood Count 7.8 K/mm3 (4.4-11.0)
[2020-12-23 21:56] LABS: Anion Gap 9 (5-15); BUN 23 mg/dL (7-18); BUN/Creat Ratio 27.8 RATIO (10-20); Calcium,Total 9.3 mg/dL (8.5-10.1); Chloride 103 mmol/L (98-107); Creatinine, Serum 0.83 mg/dL (0.70-1.30); EST Glomerular Filtration Rate 112 mL/min (>60); Est Glom Filt Rate - Afr Amer 136 mL/min (>60); Estimated Creatinine Clearance 144.43 ml/min; Glucose 217 mg/dL (74-106); Potassium 3.7 mmol/L (3.5-5.1); Sodium Level 138 mmol/L (136-145)
[2020-12-23 23:09] VITALS: PULSE 99; RESP 16
[2020-12-23 23:26] VITALS: BP 175/98; PULSE 99; RESP 18
[2020-12-23] MEDS: LORazepam 2 MG/ML Syringe 1 MG IV (23:27)
--- NOTE | 2020-12-23 23:36 | ED.DEP ---
ED Disposition - Plan for ED Patient: Instructions: ED Paraesthesias, ED Anxiety Reaction, ED Hypertension, Established Referrals: Brad Lipscomb MD [Primary Care Provider] - Additional Instructions: Follow up with your neurologist as instructed
[2020-12-23 23:58] VITALS: BP 175/98; PULSE 98; RESP 18; O2SAT 99
== END 2020-12-24 | disposition home or self-care (01) ==
LOC: ED 22:26
PROVIDERS: Emergency Provider Emergency Medicine; PCP Family Medicine
DX: R20.2 Paresthesia of skin (principal); I10 Essential (primary) hypertension; F41.9 Anxiety disorder, unspecified; E11.9 Type 2 diabetes mellitus without complications; Z86.73 Personal history of transient ischemic attack (TIA), and cerebral infarction without residual deficits; Z79.4 Long term (current) use of insulin; Z79.899 Other long term (current) drug therapy
CPT/HCPCS: 70496; 70498; 80048; 85025; 96361; 96374; 99285; J7030; Q9967; A4216

== ENCOUNTER → 2021-01-10 15:22 | Outpatient (CLI) | payer OTHER, SELFPAY ==
[2020-12-23 20:25] VITALS: BMI 41.1
[2021-01-11 08:32] LABS: HIV - WCH Non-Reactive (Nonreactive); Hepatitis B Surface Antigen Non-Reactive (Nonreactive); Hepatitis C Antibody Non-Reactive (Nonreactive); Syphilis Antibodies Non-reactive
== END ==
PROVIDERS: PCP Family Medicine
DX: Z31.41 Encounter for fertility testing (principal); Z11.3 Encounter for screening for infections with a predominantly sexual mode of transmission
CPT/HCPCS: 36415; 86703; 86780; 86803; 86900; 86901; 87340

== ENCOUNTER 2021-03-02 18:21 | Emergency (ER) | payer OTHER, SELFPAY ==
[2021-03-02 18:24] VITALS: BP 220/112; PULSE 121; RESP 20; TEMP 36.2; O2SAT 96; BMI 47.7
--- NOTE | 2021-03-02 18:28 | EKG12_ITS ---
Test Reason : Blood Pressure : / mmHG Vent. Rate : 099 BPM Atrial Rate : 099 BPM P-R Int : 168 ms QRS Dur : 100 ms QT Int : 354 ms P-R-T Axes : 050 022 035 degrees QTc Int : 454 ms Normal sinus rhythm Normal ECG Confirmed by ONOFRE MICHELLE, LASHAWN ([id number]), purchase request editor PHOENIX OLSEN ([id number]) on 03/06/2021 9:51:37 AM Referred By: SAMMIE/MYRON Confirmed By:LASHAWN ADHIKARI MD
--- NOTE | 2021-03-02 18:29 | EDS_ITS ---
HPI History of Present Illness Chief Complaint: Neuro S/Sx Informant: patient and parent Onset/Context/Timing Onset: Hours (1 hr ago, around 1730) Context: Sudden Onset Timing: Continuous Onset: aura in left side of head, no numbness/tingling Current Severity: Moderate Maximum Severity: Moderate Worsened by: nothing Relieved by: nothing; took an Ativan earlier due to anxiety Associated Symptoms Associated Symptoms: Positive for Headache and - (very anxious); Negative for Nausea, Vomiting and Chest Pain Narrative Narrative: Patient presents saying that about an hour ago he started having sensation of an aura on the left side of his head and feeling more anxious. He keeps discussing the history of a TIA that led to the diagnosis of a 50% left internal carotid blockage that was remote. He has been on a full dose aspirin ever since that diagnosis, no anticoagulants. Denies any recent injury or illness. He denies any weakness, numbness, tingling now, just the sensation in his head and extreme anxiety. He states when he had the TIA in the past, he had some speech issues and right arm weak/numb. That is not the case now. He is on blood pressure medications, and medications for anxiety. In fact, he states his anxiety is such an issue that he was taking the lorazepam every day as needed, so they added Zoloft to his regimen in order to decrease his Ativan usage. Despite this, he states he used Ativan earlier because his anxiety felt like it was really increasing. He is also on antihypertensives, he was on lisinopril but developed cough until about a week ago was switched to amlodipine, he had no significant symptoms during that week after it was changed until now. He also has not been watching his pressure since then. He has been compliant with his medications and not missing any. [facility] Medical History Anxiety Diabetes Hypertension Left-sided carotid artery disease TIA (transient ischemic attack) Home Medications insulin lispro See Protocol SC ACHS #1 box 11/29/20 [Rx Last Taken Unknown] lorazepam 1 mg PO PRN PRN 11/29/20 [History Last Taken Unknown] pen needle, diabetic #1 box 11/29/20 [Rx Last Taken Unknown] lacosamide 100 mg PO BID 12/23/20 [History Last Taken Unknown] Allergy/AdvReac Type Severity Reaction Status Date / Time ibuprofen AdvReac Shortness Verified 03/02/21 18:27 of breath Social History Smoking Status: Never smoker ROS ROS ED Constitutional Constitutional ED: Denies chills or fever(s) Eyes Eyes: Denies change in vision or diplopia ENT ENT ED: Denies rhinorrhea or sore throat Cardiovascular Cardiovascular: Denies chest pain or palpitations Respiratory/Chest Respiratory/Chest: Denies cough or dyspnea Gastrointestinal Gastrointestinal: Denies abdominal pain, diarrhea, nausea or vomiting Genitourinary Genitourinary ED: Denies dysuria or hematuria Musculoskeletal Musculoskeletal: Denies back pain or neck pain Integumentary Denies abscess or rash Neurologic Neurologic: Reports as per HPI and headache(s); Denies paresthesias or weakness Psychiatric Psychiatric: Reports as per HPI and anxiety; Denies auditory hallucinations or suicidal thoughts EXAM Physical Exam Const Vital Signs: 03/02/21 18:24 03/02/21 19:07 Temperature 97.2 F L Temperature Source Temporal Pulse Rate 121 H 90 Respiratory Rate 20 H 16 Blood Pressure 220/112 H 154/87 H Blood Pressure Mean 148 109 Pulse Ox 96 99 Oxygen Delivery Method Room Air Room Air Positive well nourished, well developed and obese General Appearance ED: well developed and NAD Nutritional Appearance: obese HEENT Reports moist mucous membranes normocephalic and atraumatic Eyes PERRL and EOMs intact bilaterally Neck full ROM and supple Resp normal respiratory effort and clear to auscultation bilaterally Cardio regular rate, regular rhythm and no murmurs Rate: tachycardic GI non-tender and non-distended Auscultation: normoactive bowel sounds Palpation: soft Back/Spine no CVA tenderness General Back: other FROM Extremity normal to inspection General Extremety ED: Negative for edema, pulses abnormal or tenderness General Extremity: Negative for edema or pulses abnormal Neuro oriented x3, CN's II-XII intact bilaterally and no sensory deficits noted Sensorium / Orientation: awake and alert Motor Exam: strength 5/5 throughout Psych cooperative and denies suicidal ideation Psych Narrative: Very anxious, while not performing commands during the exam, patient has increased psychomotor agitation especially in the lower extremities. He can suppress this. Activity / Motor Behavior: appropriate eye contact and psychomotor agitation Speech: normal speech Skin no rashes or lesions noted and no wounds STROKE Vital Signs/Narrative: Vital Signs Temp Pulse Resp BP Pulse Ox 03/02/21 19:07 90 16 154/87 H 99 03/02/21 18:24 97.2 F L 121 H 20 H 220/112 H 96 NIHSS Initial: 1a Level of Consciousness: 0 1b LOC Questions (Score 2 if aphasic/stupor): 0 1c LOC Commands (Only score 1st attempt): 0 2 Best Gaze (If aphasic, use reflexive mvmts.): 0 3 Visual: 0 4 Facial Palsy: 0 5 Motor Arm Right (UN = amputation/fusion): 0 5 Motor Arm Left: 0 6 Motor Leg Right: 0 6 Motor Leg Left: 0 7 Limb ataxia (Only + if out of proportion): 0 8 Sensory (Aphasia/stupor=0 or 1, coma=2): 0 9 Best Language: 0 10 Dysarthria (mute, coma=2, intubated=UN): 0 11 Extinction and Inattention (only scored if +): 0 Total Score: 0 MDM MDM MDM Narrative Medical decision making narrative: CT was normal. I treated the patient's blood pressure with labetalol and his anxiety with Ativan both simultaneously. On reexamination he feels much better, he states all of the symptoms are gone, and his blood pressure is down to 154/87. He states that he sometimes checks his pressure five and six times a day at home, specially if he feels poorly, that happened today and then his pressure went up and up. We discussed anxiety, and trying to check his blood pressure less at home, and we discussed reasons to come to the ER. He was on lisinopril 30 mg a day when he discontinued it because of the cough, and was on lisinopril for about a year. He started on amlodipine 1 week ago when he thinks 10 mg, I advised him that if he truly is on 10 mg he can double that until he sees his primary doctor in follow-up, if he is already on 20 he should continue at that dose and then follow-up. He is comfortable with that plan. Lab Data Attestation: I reviewed the patient's lab results. Labs: Laboratory Results - last 24 hr 03/02/21 03/02/21 03/02/21 18:27 18:38 18:38 WBC 7.8 RBC 4.87 Hgb 14.4 Hct 42.6 MCV 87.5 MCH 29.6 MCHC 33.8 RDW Std Deviation 38.9 RDW Coeff of Hardik 12.2 Plt Count 471 H MPV 9.0 Immature Gran % (Auto) 0.400 Neut % (Auto) 48.5 Lymph % (Auto) 36.4 [place] % (Auto) 9.6 Eos % (Auto) 3.6 Baso % (Auto) 1.5 H Absolute Neuts (auto) 3.8 Absolute Lymphs (auto) 2.85 Nucleated RBC % 0 Sodium 138 Potassium 4.0 Chloride 107 Carbon Dioxide 24.0 Anion Gap 7 BUN 19 H Creatinine 0.80 Estim Creat Clear Calc 133.07 Est GFR (MDRD) Af Amer 140 Est GFR (MDRD) Non-Af 116 BUN/Creatinine Ratio 23.6 H Glucose 141 H Calcium 9.2 Troponin I < 0.015 POC Glucose 139 H Radiography Diagnostic Testing: Radiology Impression Brain CT 03/02/21 19:17 IMPRESSION: No acute intracranial findings. Individualized dose optimization techniques were used for this CT. at 1938 Reported and signed by: Blaise Palma MD Electronically Signed: Blaise Palma MD at 19:37 EDT Tel , Service support , EKG Initial EKG: Attestation: I personally reviewed and interpreted this EKG as follows: Interpretation: Sinus Rhythm and No Acute Injury Pattern Comments: normal nonischemic EKG, HR 99 (before treatment) Stroke Documentation Questions Stroke Team Activated: No (unlikely stroke/TIA given hx/exam, but CT ordered) Discharge Plan Triage Chief Complaint: Neuro S/Sx ED Provider: Prashant Doe Dx/Rx/DC Orders Clinical Impression: Accelerated hypertension, Anxiety Instructions: ED Anxiety Reaction, ED High Blood Pressure ... Prescriptions: No Action lorazepam 1 MG tablet 1 mg PO PRN PRN (Reason: Anxiety) RF: 0 insulin lispro 100 UNIT/ML insulin pen See Protocol unit SC ACHS Qty: 1 RF: 0 (DME) pen needle, diabetic 1 EACH needle 1 ea MC ACHS Qty: 1 RF: 0 lacosamide 100 MG tablet 100 mg PO BID RF: 0 Primary Care Provider: Brad Lipscomb Referrals: Brad Lipscomb MD [Primary Care Provider] - 3-5 Days Activity Restrictions/Additional Instructions: If your amlodipine dose is 10 mg daily, double it. If you are already at 20 mg/day or higher, continue at that dose and follow-up. Disposition Disposition: Home, self care
[2021-03-02 18:31] LABS: Bedside Glucose 139 mg/dL (70-110)
[2021-03-02 18:49] LABS: Absolute Lymphocyte Count 2.85 X10^3/uL (0.83-4.51); Absolute Neutrophil Count 3.8 X10^3/uL (2.0-7.7); Basophil# 0.12 X10^3/uL; Basophil% 1.5 % (0-1); Eosinophil# 0.28 X10^3/uL; Eosinophils% 3.6 % (0-5); Hematocrit 42.6 % (40-54); Hemoglobin 14.4 g/dL (13.0-16.5); Lymphocyte # 2.85 X10^3/ul (0.83-4.51); Lymphocyte % 36.4 % (19-41); Mean Corp Hgb Conc 33.8 g/dL (32-36); Mean Corpuscular Hgb 29.6 pg (27.0-32.0); Mean Corpuscular Volume 87.5 fL (80-94); Monocyte# 0.75 X10^3/uL; Monocyte% 9.6 % (0-10); NRBC Flagged by Analyzer 0 % (0-5); Neutrophil # 3.81 X10^3/uL (2.7-7.7); Neutrophil % 48.5 % (47-70); Platelet Count 471 K/mm3 (150-450); RBC Distribution Width CV 12.2 % (11.6-14.6); RBC Distribution Width SD 38.9 fl (35.1-43.9); Red Blood Count 4.87 M/mm3 (4.6-6.2); White Blood Count 7.8 K/mm3 (4.4-11.0)
[2021-03-02] MEDS: LORazepam 2 MG/ML Syringe 0.5 MG IV (19:00)
[2021-03-02] MEDS: Labetalol 100 MG/20 ML Vial 10 MG IV (19:02)
[2021-03-02 19:07] VITALS: BP 154/87; PULSE 90; RESP 16; O2SAT 99
[2021-03-02 19:10] LABS: Anion Gap 7 (5-15); BUN 19 mg/dL (7-18); BUN/Creat Ratio 23.6 RATIO (10-20); Calcium,Total 9.2 mg/dL (8.5-10.1); Chloride 107 mmol/L (98-107); EST Glomerular Filtration Rate 116 mL/min (>60); Est Glom Filt Rate - Afr Amer 140 mL/min (>60); Estimated Creatinine Clearance 133.07 ml/min; Glucose 141 mg/dL (74-106); Sodium Level 138 mmol/L (136-145)
[2021-03-02 19:13] VITALS: BMI 47.7
--- NOTE | 2021-03-02 19:17 | CT_ITS ---
HISTORY: headache TECHNIQUE: Multiple axial images were obtained of the brain without intravenous contrast. A radiation dose optimization technique was used for this scan. IV Contrast dosage and agent: None. COMPARISON: None FINDINGS: # of images incl. paperwork: 268 PARANASAL SINUSES AND MASTOID AIR CELLS: Minimal scattered mucoperiosteal thickening. INTRACRANIAL HEMORRHAGE: None. BRAIN PARENCHYMA: No CT evidence of stroke. No intracranial masses. There is preservation of the agrawal/white matter interface. Posterior fossa structures are unremarkable. CSF SPACES: Appropriate for age. There is no hydrocephalus. MASS EFFECT: None. CALVARIUM: Intact. CT/Brain/Head without Contrast IMPRESSION: No acute intracranial findings. Individualized dose optimization techniques were used for this CT. at 1938 Reported and signed by: Blaise Palma MD Electronically Signed: Blaise Palma MD at 19:37 EDT Tel , Service support ,
[2021-03-02 21:17] VITALS: BP 156/82
== END 2021-03-02 21:18 | disposition home or self-care (01) ==
PROVIDERS: Emergency Provider Emergency Medicine; PCP Family Medicine
DX: F41.9 Anxiety disorder, unspecified (principal); I10 Essential (primary) hypertension; E11.9 Type 2 diabetes mellitus without complications; E66.9 Obesity, unspecified; Z86.73 Personal history of transient ischemic attack (TIA), and cerebral infarction without residual deficits; Z79.4 Long term (current) use of insulin; Z79.899 Other long term (current) drug therapy
CPT/HCPCS: 70450; 80048; 82962; 84484; 85025; 93005; 96374; 96375; 99284; A4216

== ENCOUNTER → 2021-03-10 15:55 | Outpatient (CLI) | payer OTHER, SELFPAY ==
[2021-03-02 19:13] VITALS: BMI 47.7
== END ==
PROVIDERS: PCP Family Medicine
DX: Z01.818 Encounter for other preprocedural examination (principal)
CPT/HCPCS: 87635; C9803; U0005; U0003

== ENCOUNTER 2021-03-20 15:58 | Outpatient (RCR) | payer OTHER, SELFPAY | END 2021-03-29 23:59 | LOC: NS 15:58 | PROVIDERS: PCP Family Medicine; Visit Provider Family Medicine | DX: Z71.3 Dietary counseling and surveillance (principal); E11.9 Type 2 diabetes mellitus without complications; E66.01 Morbid (severe) obesity due to excess calories; Z68.41 Body mass index [BMI] 40.0-44.9, adult | CPT/HCPCS: 97802 ==

== ENCOUNTER 2021-04-12 08:30 | Outpatient (RCR) | payer OTHER, SELFPAY | END 2021-04-29 23:59 | LOC: DC 08:30 | PROVIDERS: PCP Family Medicine; Visit Provider Family Medicine | DX: E11.9 Type 2 diabetes mellitus without complications (principal); E66.01 Morbid (severe) obesity due to excess calories; Z68.41 Body mass index [BMI] 40.0-44.9, adult | CPT/HCPCS: 97803; G0108 ==

== ENCOUNTER → 2021-05-16 06:09 | Outpatient (CLI) | payer OTHER, SELFPAY ==
[2021-04-27 16:11] VITALS: BMI 43.5
--- NOTE | 2021-05-16 07:46 | STRESSREP ---
Stress Test Report Date: 05-16-2021 Procedure: Exercise tolerance test/imaging study Indications: Chest pain; preoperative cardiovascular evaluation Consent: Per the patient Procedure: The patient exercised on a Parker protocol for 5 minutes and 37 completing Stage I and 1 minute and 30 seconds of Stage II achieving a peak heart rate of 148 bpm (80% predicted maximal heart rate) with a peak blood pressure 200/70 mmHg and a peak MET capacity of 7 METs. The baseline ECG demonstrated normal sinus rhythm. The peak exercise ECG demonstrated no obvious ECG changes. There were no cardiac dysrhythmias pretest, during exercise, or recovery. The functional capacity was considered average. There was notation of mild chest discomfort pretest with no report of chest discomfort during exercise or recovery. The examination was discontinued secondary to dyspnea. Impression: 1. Technically inadequate (percent predicted maximal heart rate less than 85%) exercise tolerance test 2. Peak exercise ECG with no obvious ECG changes at the heart rate achieved 3. There were no cardiac dysrhythmias pretest, during exercise, or recovery 4. Nuclear images pending Myocardial perfusion imaging study: Technique: The patient was injected with 15.0 mCi of technetium 99m Cardiolite and subsequently rest SPECT Cardiolite nuclear imaging was obtained in the horizontal long, vertical long, and short axis views. The patient exercised on a Parker protocol for 5 minutes and 37 completing Stage I and 1 minute and 30 seconds of Stage II achieving a peak heart rate of 148 bpm (80% predicted maximal heart rate) with a peak blood pressure 200/70 mmHg and a peak MET capacity of 7 M The patient was injected with 45.0 mCi of technetium 99m Cardiolite and subsequently stress SPECT Cardiolite nuclear imaging was obtained in the horizontal long, vertical long, and short axis views. A gated Cardiolite study at peak stress was obtained. Interpretation: Rest and stress SPECT Cardiolite nuclear imaging status post realignment, normalization, and attenuation correction, demonstrates the appearance of a small area of subtle diminished tracer uptake near the apical segments without significant change between rest and stress. There is end systolic thickening and brightening. The gated Cardiolite study demonstrates myocardial thickening and inward wall motion. The reported LVEF is 65%. Impression: 1. Rest and stress SPECT Cardiolite nuclear imaging demonstrate myocardial perfusion changes appearing compatible with the effects of physiologic apical thinning with no myocardial perfusion changes considered diagnostic for associated stress-induced myocardial ischemia at the heart rate achieved. 2. The gated Cardiolite study reports an LVEF of 65%. This note was generated with [employer] software. It may contain incorrect words, spelling, and punctuation that were not noted in checking the note before signing.
== END ==
PROVIDERS: PCP Family Medicine; Referring Provider Internal Medicine Cardiovascular Disease; Visit Provider Internal Medicine Cardiovascular Disease
DX: Z01.818 Encounter for other preprocedural examination (principal); R07.9 Chest pain, unspecified; I77.9 Disorder of arteries and arterioles, unspecified; I10 Essential (primary) hypertension
CPT/HCPCS: 78452; 93017; A9500; A4216

== ENCOUNTER 2021-05-29 10:02 | Outpatient (RCR) | payer OTHER, SELFPAY ==
[2021-04-27 16:11] VITALS: BMI 43.5
== END 2021-05-30 23:59 ==
LOC: DC 10:02
PROVIDERS: PCP Family Medicine; Visit Provider Family Medicine
DX: E11.9 Type 2 diabetes mellitus without complications (principal); E66.01 Morbid (severe) obesity due to excess calories; Z68.41 Body mass index [BMI] 40.0-44.9, adult
CPT/HCPCS: 97803

== ENCOUNTER 2021-11-26 18:03 | Emergency (ER) | payer OTHER, SELFPAY ==
[2021-11-26 18:04] VITALS: BP 143/91; PULSE 103; RESP 15; TEMP 37.2; O2SAT 99; BMI 46.2
--- NOTE | 2021-11-26 18:41 | EDS_ITS ---
HPI History of Present Illness Chief Complaint: Lower Extremity Injury Narrative Narrative: Patient presents with his for injury to his right foot that he sustained approximately 1 hour prior to arrival. He states that they were leaving to go to an appointment, and he twisted his right foot. He denies any ankle pain, and did not fall. He now has pain that is worse with weightbearing. It is also worse with walking. He complains of swelling on the lateral aspect of his right foot. He denies other injury. [facility] Medical History Accelerated hypertension Anxiety Anxiety Diabetes Essential hypertension GERD (gastroesophageal reflux disease) Hyperglycemia Hypertension Left-sided carotid artery disease MONO (obstructive sleep apnea) Pre-op examination Syncope TIA (transient ischemic attack) Type 2 diabetes mellitus Home Medications atorvastatin 20 mg tablet 20 mg PO QHS 04/26/21 [History Last Taken Unknown] multivitamin 1 tab PO DAILY 04/26/21 [History Last Taken Unknown] omega-3 fatty acids 1,000 mg capsule 1,000 mg PO DAILY 04/26/21 [History Last Taken Unknown] amlodipine 10 mg tablet 5 mg PO DAILY tab 04/27/21 [History Last Taken Unknown] aspirin 325 mg tablet 325 mg PO DAILY 04/27/21 [History Last Taken Unknown] insulin glargine 100 unit/mL subcutaneous solution 50 unit SUBCUT QAM ml 04/27/21 [History Last Taken Unknown] insulin lispro 100 unit/mL subcutaneous pen 18 unit SUBCUT QAC ml 04/27/21 [History Last Taken Unknown] lacosamide 100 mg tablet 200 mg PO BID tab 04/27/21 [History Last Taken Unknown] cholecalciferol (vitamin D3) 50 mcg (2,000 unit) capsule 50 mcg PO DAILY #90 cap 06/09/21 [Rx Last Taken Unknown] sertraline 100 mg tablet 100 mg PO DAILY #90 tab 06/09/21 [Rx Last Taken Unknown] losartan 100 mg tablet 100 mg PO DAILY #90 tab 09/20/21 [Rx Last Taken Unknown] Allergy/AdvReac Type Severity Reaction Status Date / Time ibuprofen AdvReac Shortness Verified 11/26/21 18:04 of breath Family History Father Diabetes Heart disease Grandmother CAD (coronary artery disease) Grandfather CAD (coronary artery disease) Myocardial infarction Grandmother Diabetes CHF (congestive heart failure) Social History Smoking Status: Never smoker alcohol intake: never substance use type: does not use caffeine: Yes Type: carbonated beverages Number of servings: 2 and coffee Number of servings: 1 ROS ROS ED ROS Narrative Constitutional: No fever, no chills. HEENT: No sore throat. No neck pain. No loss of vision. No rhinorrhea. Cardiovascular: No chest pain. No palpitations. No pedal edema. Respiratory: No cough, no shortness of breath. Abdominal: No abdominal pain. No nausea. No vomiting. Genitourinary: No dysuria. No hematuria. Musculoskeletal: No myalgias. Right lateral foot pain and swelling. Neurologic: No headaches. No dizziness. No lightheadedness. Skin: No rash. No change in color. Psychiatric: No depression. No anxiety. EXAM Physical Exam Narrative Exam Narrative: Afebrile. Vital signs noted. HEENT: Normocephalic. Atraumatic. PERRL, EOMI. Neck soft and supple. No point tenderness or step off. Cardiovascular: Regular rate and rhythm. No murmurs, rubs, or gallops appreciated. Respiratory: No tachypnea. Lungs clear to auscultation bilaterally. Gastrointestinal: Abdomen soft, nontender, with normoactive bowel sounds. No rebound or guarding. Neurological: Awake. Alert. Nonfocal, nonlateralizing. Skin: No rash. Normal color. No pallor. Musculoskeletal: No pedal edema. Mild ecchymosis right lateral tarsal bones with tenderness and swelling. No malleoli or tenderness. No palpable Achilles tendon deficit. No proximal fibular head tenderness. Minimal pain at base of fifth metatarsal. Palpable dorsalis pedis pulse. Const Vital Signs: 11/26/21 18:04 11/26/21 22:13 Temperature 98.9 F Temperature Source Temporal Pulse Rate 103 H 76 Respiratory Rate 15 17 Blood Pressure 143/91 H Blood Pressure Mean 108 Pulse Ox 99 97 Oxygen Delivery Method Room Air MDM MDM MDM Narrative Medical decision making narrative: RN ordered x-rays of the ankle. His swelling is over the foot and tarsal bones. I ordered an x-ray of the right foot. X-ray was read by myself as no evidence of fracture. At this point in time, he was given a note to be off work but will be weightbearing as tolerated. He was placed in a postop shoe. He will continue ice and elevation at home along with [id number] analgesics. He was referred to podiatry. I discussed with the patient and his that even if he did have a tarsal bone fracture, the treatment would be the same. There was significant delay in the read of the x- ray. I did see that the radiologist read it as questionable fragment of the dorsal talus. He will follow up with his primary care physician/podiatry. Patient was discharged in stable condition. Radiography Diagnostic Testing: Clinical Impression(s) from Imaging Studies Foot X-Ray 11/26/21 18:46 IMPRESSION: Questionable osseous fragment dorsal to the distal talus. Correlate clinically for tenderness proximal dorsal foot. Posterior calcaneal spur. Electronically Signed: Ector Spring DO at 23:25 EST , Discharge Plan Triage Chief Complaint: Lower Extremity Injury ED Provider: Brennen Castellon Dx/Rx/DC Orders Clinical Impression: Foot sprain Instructions: ED Foot Sprain Prescriptions: No Action aspirin 325 mg tablet 325 mg PO DAILY RF: 0 amlodipine 10 mg tablet 5 mg PO DAILY RF: 0 atorvastatin 20 mg tablet 20 mg PO QHS RF: 0 omega-3 fatty acids [Fish Oil Concentrate] 1,000 mg capsule 1,000 mg PO DAILY RF: 0 multivitamin Tablet 1 tab PO DAILY RF: 0 Lantus U-100 Insulin 100 unit/mL solution 50 unit subcut QAM RF: 0 insulin lispro [Humalog KwikPen Insulin] 100 unit/mL insulin pen 18 unit subcut QAC RF: 0 sertraline 100 mg tablet 100 mg PO DAILY Qty: 90 RF: 3 cholecalciferol (vitamin D3) 50 mcg (2,000 unit) capsule 50 mcg PO DAILY Qty: 90 RF: 3 lacosamide 100 mg tablet 200 mg PO BID RF: 0 losartan 100 mg tablet 100 mg PO DAILY Qty: 90 RF: 3 Stand Alone Forms: ED Work / School Excuse Primary Care Provider: Brad Lipscomb Referrals: Brad Lipscomb MD [Primary Care Provider] - 1 Week if not improving Erna Orourke DPM [STAFF PHYSICIAN] - 1 Week if not improving Disposition Disposition: Home, Self Care Discharge Date/Time: 11/26/21 22:14
--- NOTE | 2021-11-26 18:46 | RAD_ITS ---
INDICATION: pain EXAMINATION/TECHNIQUE: X-RAY - RIGHT XR Foot Min 3 Views 3 VIEWS COMPARISON: None. FINDINGS: SOFT TISSUES: No soft tissue swelling or gas. No radiopaque foreign body. BONES/JOINTS: Subtle ossific densities dorsal to the distal talus represent a capsular avulsion injury. Minimal overlying soft tissue swelling. There appears to be mild soft tissue swelling lateral ankle. Spurlike enthesopathic changes posterior calcaneus. Achilles tendon shadow is normal in appearance. Preservation of the joint space and no degenerative bony proliferative changes. No sclerotic or destructive changes observed. RAD/Foot min 3 Views IMPRESSION: Questionable osseous fragment dorsal to the distal talus. Correlate clinically for tenderness proximal dorsal foot. Posterior calcaneal spur. Electronically Signed: Ector Spring DO at 23:25 EST ,
[2021-11-26 22:13] VITALS: PULSE 76; RESP 17; O2SAT 97
== END 2021-11-26 22:14 | disposition home or self-care (01) ==
PROVIDERS: Emergency Provider Emergency Medicine; PCP Family Medicine; Visit Provider Emergency Medicine
DX: S93.601A Unspecified sprain of right foot, initial encounter (principal); E11.9 Type 2 diabetes mellitus without complications; Z79.4 Long term (current) use of insulin; X50.1XXA Overexertion from prolonged static or awkward postures, initial encounter; I10 Essential (primary) hypertension; K21.9 Gastro-esophageal reflux disease without esophagitis; G47.33 Obstructive sleep apnea (adult) (pediatric); Z79.82 Long term (current) use of aspirin; Z79.899 Other long term (current) drug therapy; Z86.73 Personal history of transient ischemic attack (TIA), and cerebral infarction without residual deficits
CPT/HCPCS: 73630; 99283

== ENCOUNTER → 2022-09-20 | Outpatient (CLI) | payer OTHER, SELFPAY | END | disposition home or self-care (01) | PROVIDERS: PCP Family Medicine; Visit Provider Psychiatry & Neurology Sleep Medicine | DX: G47.33 Obstructive sleep apnea (adult) (pediatric) (principal) | CPT/HCPCS: 95811 ==

== ENCOUNTER 2023-02-25 02:47 | Emergency (ER) | payer OTHER, SELFPAY ==
[2023-02-25 02:49] VITALS: BP 194/72; PULSE 133; RESP 18; TEMP 38.3; O2SAT 99; BMI 48.9
[2023-02-25 02:50] VITALS: BP 194/72; PULSE 132; RESP 18; TEMP 38.3; O2SAT 100
[2023-02-25] MEDS: Acetaminophen 500 MG Tablet 1000 MG PO (03:24)
[2023-02-25 03:29] VITALS: BP 160/80; PULSE 128; RESP 18; TEMP 38.3; O2SAT 100
--- NOTE | 2023-02-25 03:30 | RAD_ITS ---
EXAM: XR CHEST, 2 VIEWS CLINICAL INDICATION: cough TECHNIQUE: Frontal and lateral views of the chest. COMPARISON: 11/29/2020 FINDINGS: LUNGS AND PLEURAL SPACES: Unremarkable. No consolidation or edema. No pneumothorax. No effusion. HEART: Unremarkable. Cardiac silhouette not enlarged. MEDIASTINUM: Central airways and mediastinal contour are unremarkable. BONES/JOINTS: Unremarkable. SOFT TISSUES: Unremarkable. RAD/Chest PA and Lateral IMPRESSION: No radiographic evidence of acute cardiopulmonary disease. Electronically Signed: Homer Maldonado MD at 3:55 EDT ,
[2023-02-25 04:05] LABS: Absolute Lymphocyte Count 1.28 X10^3/uL (0.83-4.51); Absolute Neutrophil Count 12.2 X10^3/uL (2.0-7.7); Basophil# 0.13 X10^3/uL; Basophil% 0.9 % (0-1); Eosinophil# 0.11 X10^3/uL; Eosinophils% 0.7 % (0-5); Hematocrit 44.7 % (40-54); Hemoglobin 14.7 g/dL (13.0-16.5); Lymphocyte # 1.28 X10^3/ul (0.83-4.51); Lymphocyte % 8.5 % (19-41); Mean Corp Hgb Conc 32.9 g/dL (32-36); Mean Corpuscular Hgb 29.8 pg (27.0-32.0); Mean Corpuscular Volume 90.7 fL (80-94); Mean Platelet Vol. 10.4 fl (6.2-12.0); Monocyte# 1.28 X10^3/uL; Monocyte% 8.5 % (0-10); NRBC Flagged by Analyzer 0 % (0-5); Neutrophil # 12.19 X10^3/uL (2.7-7.7); Neutrophil % 80.9 % (47-70); Platelet Count 399 K/mm3 (150-450); RBC Distribution Width CV 12.7 % (11.6-14.6); RBC Distribution Width SD 41.9 fl (35.1-43.9); Red Blood Count 4.93 M/mm3 (4.6-6.2); White Blood Count 15.1 K/mm3 (4.4-11.0)
[2023-02-25 04:22] LABS: D-Dimer Quantitative (DVT/PE) < 0.27 FEU/ug/m (0.27-0.49)
[2023-02-25 04:29] LABS: Anion Gap 8 (5-15); BUN 26 mg/dL (7-18); BUN/Creat Ratio 20.8 RATIO (10-20); Calcium,Total 8.7 mg/dL (8.5-10.1); Chloride 106 mmol/L (98-107); Creatinine, Serum 1.25 mg/dL (0.70-1.30); EST Glomerular Filtration Rate 69 mL/min (>60); Est Glom Filt Rate - Afr Amer 83 mL/min (>60); Estimated Creatinine Clearance 96.71 ml/min; Glucose 239 mg/dL (74-106); Magnesium 1.7 mg/dL (1.6-2.6); Potassium 4.1 mmol/L (3.5-5.1); Sodium Level 140 mmol/L (136-145)
--- NOTE | 2023-02-25 04:53 | EX.ED.DYSGE1 ---
HPI History of Present Illness Chief Complaint: General Illness Informant: patient and spouse/S.O. Narrative Narrative: Patient is a 37-year-old male with past medical history of insulin-dependent diabetes and hypertension. 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 He states there is increased shortness of breath with this. He denies any recent travel surgery or history of DVT/PE. He denies any chest pain associated with this. He states that based on his chronic medical conditions he is concerned this could be infectious in nature and therefore comes in for evaluation [facility] Medical History Accelerated hypertension Anxiety Anxiety Diabetes Essential hypertension GERD (gastroesophageal reflux disease) Hyperglycemia Hypertension Left-sided carotid artery disease MONO (obstructive sleep apnea) Pre-op examination Syncope TIA (transient ischemic attack) Type 2 diabetes mellitus Home Medications atorvastatin 20 mg tablet 20 mg PO QHS 04/26/21 [History Last Taken Unknown] multivitamin 1 tab PO DAILY 04/26/21 [History Last Taken Unknown] omega-3 fatty acids 1,000 mg capsule (Fish Oil Concentrate) 1,000 mg PO DAILY 04/26/21 [History Last Taken Unknown] aspirin 325 mg tablet 325 mg PO DAILY 04/27/21 [History Last Taken Unknown] insulin lispro 100 unit/mL subcutaneous pen (Humalog KwikPen (U-100) Insulin) 18 unit subcut QA 04/27/21 [History Last Taken Unknown] cholecalciferol (vitamin D3) 50 mcg (2,000 unit) capsule 50 mcg PO DAILY #90 caps 06/09/21 [Rx Last Taken Unknown] losartan 100 mg tablet 100 mg PO DAILY #90 tabs 09/20/21 [Rx Last Taken Unknown] insulin glargine 100 unit/mL (3 mL) subcutaneous pen 75 unit subcut DAILY 02/25/23 [History Last Taken Unknown] Allergy/AdvReac Type Severity Reaction Status Date / Time ibuprofen AdvReac Shortness Verified 02/25/23 02:55 of breath Family History Father Diabetes Heart disease Grandmother CAD (coronary artery disease) Grandfather CAD (coronary artery disease) Myocardial infarction Grandmother Diabetes CHF (congestive heart failure) Social History Smoking Status: Never smoker alcohol intake: never substance use type: does not use caffeine: Yes Type: carbonated beverages Number of servings: 2 and coffee Number of servings: 1 ROS ROS ED Constitutional Constitutional ED: Reports chills, fever(s) and subjective ENT ENT ED: Reports rhinorrhea and sore throat Cardiovascular Cardiovascular: Denies chest pain Respiratory/Chest Respiratory/Chest: Reports cough and dyspnea Gastrointestinal Gastrointestinal: Denies abdominal pain, diarrhea, nausea or vomiting Genitourinary Genitourinary ED: Denies dysuria Musculoskeletal Musculoskeletal: Reports myalgias Integumentary Denies rash Neurologic Neurologic: Denies headache(s) Hematologic/Lymphatic Hematologic/Lymphatic: Denies easy bleeding or easy bruising EXAM Physical Exam Const Vital Signs: 02/25/23 02:49 02/25/23 02:50 02/25/23 02:56 Temperature 100.9 F H 100.9 F H Temperature Source Oral Oral Pulse Rate 133 H 132 H Respiratory Rate 18 18 Respiratory Pattern Normal Blood Pressure 194/72 H 194/72 H Blood Pressure Mean 112 112 Pulse Ox 99 100 02/25/23 03:29 02/25/23 04:55 Temperature 100.9 F H Temperature Source Oral Pulse Rate 128 H 133 H Respiratory Rate 18 20 H Respiratory Pattern Blood Pressure 160/80 H 178/70 H Blood Pressure Mean 106 Pulse Ox 100 97 Positive well nourished, well developed and obese General Appearance ED: well developed Nutritional Appearance: obese HEENT Reports moist mucous membranes HEENT Narrative: Nasal mucosa is hyperemic and boggy and there is cobblestoning the posterior pharynx consistent with sinus drainage without airway edema or compromise. No signs of infection in the posterior pharynx Eyes PERRL and EOMs intact bilaterally Neck supple and no JVD Neck Narrative: No nuchal rigidity or meningeal signs noted Resp normal respiratory effort and clear to auscultation bilaterally Cardio regular rhythm Rate: tachycardic GI normal to inspection, nondistended, normoactive bowel sounds, non-tender, non-distended and no masses GI Narrative: No voluntary guarding or rigidity no pulsatile mass or fluid wave Auscultation: normoactive bowel sounds Palpation: soft Extremity normal to inspection Extremity Narrative: No asymmetric edema no pitting edema negative Homans' sign bilaterally Neuro oriented x3 and CN's II-XII intact bilaterally Sensorium / Orientation: alert Psych mental status grossly normal Skin no rashes or lesions noted MDM MDM MDM Narrative Medical decision making narrative: Patient arrived to the ER hypertensive and febrile as well as tachycardic at a rate of 130. He is normal sinus rhythm on the monitor and by physical exam and denies any history of cardiac. He is also febrile at approximately 101 which could cause elevation to his heart rate. At this time differential diagnosis is upper respiratory infection versus pneumonia versus pneumothorax versus DVT/PE versus acute blood loss anemia or cardiac dysrhythmia. Patient was kept on the monitor and he remained in sinus tachycardia. Basic blood work was obtained which revealed no clinically significant findings. A D-dimer was obtained as patient is tachycardic and this was normal going against DVT/PE. On reevaluation patient is resting comfortably he is not requiring oxygen he is in no respiratory distress. Therefore his history and exam indicates this is most likely a viral upper respiratory infection without need for supplemental oxygen is otherwise safe for discharge History & Record Review Discussion w/independent historian: Patient and Significant other Lab Data Attestation: I reviewed the patient's lab results. Labs: Laboratory Results - last 24 hr 02/25/23 02/25/23 02/25/23 03:20 03:20 03:20 WBC 15.1 H RBC 4.93 Hgb 14.7 Hct 44.7 MCV 90.7 MCH 29.8 MCHC 32.9 RDW Std Deviation 41.9 RDW Coeff of Hardik 12.7 Plt Count 399 MPV 10.4 Immature Gran % (Auto) 0.500 Neut % (Auto) 80.9 H Lymph % (Auto) 8.5 L [place] % (Auto) 8.5 Eos % (Auto) 0.7 Baso % (Auto) 0.9 Absolute Neuts (auto) 12.2 H Absolute Lymphs (auto) 1.28 Nucleated RBC % 0 D-Dimer Quant (PE/DVT) < 0.27 L Sodium 140 Potassium 4.1 Chloride 106 Carbon Dioxide 26.0 Anion Gap 8 BUN 26 H Creatinine 1.25 Estim Creat Clear Calc 96.71 Est GFR (MDRD) Af Amer 83 Est GFR (MDRD) Non-Af 69 BUN/Creatinine Ratio 20.8 H Glucose 239 H Calcium 8.7 Magnesium 1.7 Radiography Diagnostic Testing: Clinical Impression(s) from Imaging Studies Chest X-Ray 02/25/23 03:30 IMPRESSION: No radiographic evidence of acute cardiopulmonary disease. Electronically Signed: Homer Maldonado MD at 3:55 EDT , Chest x-ray as interpreted by the emergency medicine physician reveals no acute infiltrate pneumothorax or pleural effusion Discharge Plan Triage Chief Complaint: General Illness ED Provider: Ran Parsons Dx/Rx/DC Orders Clinical Impression: Viral upper respiratory tract infection with cough, Sinus tachycardia, Pyrexia, Type 2 diabetes mellitus, Essential hypertension Instructions: ED URI, Viral, No Abx (Adult) Prescriptions: No Action aspirin 325 mg tablet 325 mg PO DAILY atorvastatin 20 mg tablet 20 mg PO QHS omega-3 fatty acids [Fish Oil Concentrate] 1,000 mg capsule 1,000 mg PO DAILY multivitamin Tablet 1 tab PO DAILY insulin lispro [Humalog KwikPen Insulin] 100 unit/mL insulin pen 18 unit subcut QAC Rx Instructions: with meals and at bedtime cholecalciferol (vitamin D3) 50 mcg (2,000 unit) capsule 50 mcg PO DAILY Qty: 90 3RF insulin glargine [Semglee Pen U-100 Insulin] 100 unit/mL (3 mL) Insulin Pen 75 unit SUBCUT DAILY losartan 100 mg tablet 100 mg PO DAILY Qty: 90 3RF Primary Care Provider: Manuel Sawyer Referrals: Manuel Sawyer, [Primary Care Provider] - Activity Restrictions/Additional Instructions: Your work-up today showed no obvious pneumonia or signs of electrolyte derangement. Your history and exam indicate you most likely have a viral upper respiratory tract infection. This type of infection will last on average 18 to 21 days. Fever will persist for an average 3 days. Continue with Tylenol to control the fever and if the fever lasts longer than a week or you have worsening shortness of breath please return for repeat evaluation. Disposition Disposition: Home, Self Care Discharge Date/Time: 02/25/23 05:00
[2023-02-25 04:55] VITALS: BP 178/70; PULSE 133; RESP 20; O2SAT 97
== END 2023-02-25 05:00 | disposition home or self-care (01) ==
PROVIDERS: Emergency Provider Emergency Medicine; Visit Provider Emergency Medicine
DX: J06.9 Acute upper respiratory infection, unspecified (principal); E11.9 Type 2 diabetes mellitus without complications; Z79.4 Long term (current) use of insulin; I10 Essential (primary) hypertension; R00.0 Tachycardia, unspecified; E66.9 Obesity, unspecified
CPT/HCPCS: 71046; 80048; 83735; 85025; 85379; 87633; 99283; A4216

== ENCOUNTER → 2024-04-17 | Outpatient (CLI) | payer OTHER, SELFPAY ==
[2024-04-17 18:34] LABS: Hepatitis B Surface Antigen Non-Reactive (Nonreactive); Hepatitis C Antibody Non-Reactive (Nonreactive); Syphilis Antibodies Non-reactive
[2024-04-19 10:07] LABS: CMV Acute Antibody IgM < 30.0 AU/mL (0.0-29.9); CMV Antibody IgG < 0.60 U/mL (0.00-0.59); Hepatitis B Core AB IgM Negative (Negative)
== END | disposition home or self-care (01) ==
DX: Z52.008 Unspecified donor, other blood (principal); Z11.3 Encounter for screening for infections with a predominantly sexual mode of transmission; Z11.4 Encounter for screening for human immunodeficiency virus [HIV]; Z11.59 Encounter for screening for other viral diseases; D89.9 Disorder involving the immune mechanism, unspecified
CPT/HCPCS: 36415; 86644; 86645; 86705; 86780; 86803; 86900; 86901; 87340

== ENCOUNTER 2024-09-09 23:39 | Emergency (ER) | payer OTHER, SELFPAY ==
[2024-09-09 23:41] VITALS: BP 188/115; PULSE 105; RESP 18; TEMP 35.7; O2SAT 96; BMI 48.6
--- NOTE | 2024-09-10 00:27 | EX.ED.DYSGE1 ---
HPI History of Present Illness Chief Complaint: Neuro S/Sx Informant: patient and spouse/S.O. Narrative Narrative: Patient is a 39-year-old male with past medical history of of type 2 diabetes GERD and hypertension. He states in 2020 he had an ischemic stroke. He states it was related to a lesion around his left carotid that was only found after workup with MRI/MRI and vascular imaging. He states he struggled with anxiety since that time. He states today he was driving home from an event when he folic his right hand went slightly numb and tingly. He states it was no other associated symptoms. He reports that he took Ativan when he arrived as he was unsure if this was anxiety or not. He states that the symptoms improved but did not completely resolve and therefore he decided to come to the ER. He does state after arriving to the ER his symptoms have completely resolved however as he concerned this could be related to his previous vascular abnormality he presents for evaluation [facility] Medical History Pre-op examination MONO (obstructive sleep apnea) Type 2 diabetes mellitus GERD (gastroesophageal reflux disease) Essential hypertension Anxiety Accelerated hypertension Left-sided carotid artery disease TIA (transient ischemic attack) Hyperglycemia Syncope Hypertension Anxiety Diabetes Home Medications ?Medication ?Instructions ?Recorded ?Last Taken ?Type atorvastatin 20 mg tablet 20 mg PO QHS 04/26/21 Unknown History multivitamin 1 tab PO DAILY 04/26/21 Unknown History omega-3 fatty acids 1,000 mg 1,000 mg PO DAILY 04/26/21 Unknown History capsule (Fish Oil Concentrate) aspirin 325 mg tablet 325 mg PO DAILY 04/27/21 Unknown History insulin lispro 100 unit/mL 18 unit subcut QAC 04/27/21 Unknown History subcutaneous pen (Humalog KwikPen (U-100) Insulin) cholecalciferol (vitamin D3) 50 50 mcg PO DAILY #90 caps 06/09/21 Unknown Rx mcg (2,000 unit) capsule losartan 100 mg tablet 100 mg PO DAILY #90 tabs 09/20/21 Unknown Rx insulin glargine 100 unit/mL (3 75 unit subcut DAILY 02/25/23 Unknown History mL) subcutaneous pen Allergy/AdvReac Type Severity Reaction Status Date / Time ibuprofen AdvReac Shortness Verified 09/09/24 23:41 of breath Family History Father Diabetes Heart disease Grandmother CAD (coronary artery disease) Grandfather CAD (coronary artery disease) Myocardial infarction Grandmother Diabetes CHF (congestive heart failure) Social History Smoking Status: Never smoker alcohol intake: never substance use type: does not use caffeine: Yes Type: carbonated beverages Number of servings: 2 and coffee Number of servings: 1 ROS ROS ED Constitutional Constitutional ED: Denies chills or fever(s) Eyes Eyes: Denies blurry vision or change in vision ENT ENT ED: Reports rhinorrhea; Denies sore throat Cardiovascular Cardiovascular: Denies chest pain Respiratory/Chest Respiratory/Chest: Denies cough or dyspnea Gastrointestinal Gastrointestinal: Denies abdominal pain, diarrhea, nausea or vomiting Genitourinary Genitourinary ED: Denies dysuria Musculoskeletal Musculoskeletal: Denies neck pain Integumentary Denies rash Neurologic Neurologic: Reports paresthesias; Denies headache(s) Psychiatric Psychiatric: Reports anxiety Hematologic/Lymphatic Hematologic/Lymphatic: Denies easy bleeding or easy bruising EXAM Physical Exam Const Vital Signs: 09/09/24 23:41 09/10/24 00:37 Temperature 96.3 F L 97.9 F Temperature Source Temporal Pulse Rate 105 H 101 H Respiratory Rate 18 18 Blood Pressure 188/115 H 158/108 H Blood Pressure Mean 139 124 Pulse Ox 96 98 Oxygen Delivery Method Room Air Positive well nourished, well developed and obese General Appearance ED: well developed; Negative for pallor Nutritional Appearance: obese HEENT Reports moist mucous membranes HEENT Narrative: No tongue or lip swelling no oral lesions no airway edema or compromise No secondary findings in the posterior pharynx to suggest infection Eyes PERRL and EOMs intact bilaterally General Eye ED: Negative for scleral icterus Neck supple Neck Narrative: No nuchal rigidity or meningeal signs Resp normal respiratory effort and clear to auscultation bilaterally Cardio regular rhythm Rate: tachycardic and other Other Details: Slightly tachycardic rate with regular rhythm No murmurs rubs or gallops No carotid bruit Radial and carotid pulses are equal and symmetric Extremity normal to inspection Neuro oriented x3, CN's II-XII intact bilaterally and no sensory deficits noted Neuro Narrative: GCS of 15 Cranial nerves II through XII are grossly intact there are no focal neurologic deficits No pronator drift no dysmetria no truncal ataxia NIH stroke scale score of 0 Sensorium / Orientation: alert Motor Exam: strength 5/5 throughout Psych Mood & Affect: anxious Skin no rashes or lesions noted and no wounds General Skin Exam: Negative for jaundice or pallor MDM MDM MDM Narrative Medical decision making narrative: Patient arrived to ER hypertensive and slightly tachycardic but has a past medical history of hypertension and also reports feeling anxious. Upon arrival he has had complete spontaneous resolution of his symptoms. His NIH stroke scale score in the ER is 0. Based on his known history of a vascular malformation along the left carotid there is concern that this was a vascular spasm versus obstruction/TIA. He reports he has been on Mounjaro and has been having bouts of nausea and vomiting and decreased oral intake secondary to this. We discussed that his symptoms could be related to a TIA versus anxiety versus electrolyte abnormality or potentially be caused by a vessel spasm from his hypertension. I offered a CT/CTA of the head and neck to reassess the vascular lesion from his previous episode in 2020 as well as basic blood work to ensure there is no signs of acute kidney injury or electrolyte abnormality. The patient's previous CTA was reviewed and he was informed that the only time the abnormality showed up was on MRI which is not possible at this time of night. He states that as his previous CTA did not reveal any clinically significant findings and he required further imaging he does not want to undergo the CT scan as he feels it would not show any changes similar to 3 years ago. He also states that as his bouts of nausea and vomiting have been limited in my concern for acute kidney injury or a lot of abnormality from this is low he does not want to undergo further testing. Therefore at this time the patient symptoms have spontaneously resolved his NIH stroke scale score is 0 and he does not want further testing so I will abide by his wishes and will be discharged home and can follow-up as an outpatient History & Record Review Discussion w/independent historian: Patient and Significant other Discharge Plan Triage Chief Complaint: Neuro S/Sx ED Provider: Ran Parsons Dx/Rx/DC Orders Clinical Impression: Paresthesia, Essential hypertension, Type 2 diabetes mellitus, GERD (gastroesophageal reflux disease) Instructions: ED Hypertension, Established, ED Paraesthesias Prescriptions: No Action aspirin 325 mg tablet 325 mg PO DAILY atorvastatin 20 mg tablet 20 mg PO QHS omega-3 fatty acids [Fish Oil Concentrate] 1,000 mg capsule 1,000 mg PO DAILY multivitamin Tablet 1 tab PO DAILY insulin lispro [Humalog KwikPen Insulin] 100 unit/mL insulin pen 18 unit subcut QAC Rx Instructions: with meals and at bedtime cholecalciferol (vitamin D3) 50 mcg (2,000 unit) capsule 50 mcg PO DAILY Qty: 90 3RF insulin glargine [Semglee Pen U-100 Insulin] 100 unit/mL (3 mL) Insulin Pen 75 unit SUBCUT DAILY losartan 100 mg tablet 100 mg PO DAILY Qty: 90 3RF Primary Care Provider: Manuel Sawyer Referrals: Manuel Sawyer DO [Primary Care Provider] - Print Language: Citizen [place] Disposition Disposition: Home, Self Care Discharge Date/Time: 09/10/24 00:37
[2024-09-10 00:37] VITALS: BP 158/108; PULSE 101; RESP 18; TEMP 36.6; O2SAT 98
== END 2024-09-10 00:37 | disposition home or self-care (01) ==
PROVIDERS: Emergency Provider Emergency Medicine; Visit Provider Emergency Medicine
DX: R20.2 Paresthesia of skin (principal); E11.9 Type 2 diabetes mellitus without complications; K21.9 Gastro-esophageal reflux disease without esophagitis; I10 Essential (primary) hypertension; F41.9 Anxiety disorder, unspecified; Z86.73 Personal history of transient ischemic attack (TIA), and cerebral infarction without residual deficits; E66.9 Obesity, unspecified; Z79.85 Long-term (current) use of injectable non-insulin antidiabetic drugs
CPT/HCPCS: 99282

== ENCOUNTER 2025-04-19 13:15 | Outpatient (RCR) | payer OTHER, SELFPAY ==
[2025-04-05 13:27] VITALS: BP 173/101; PULSE 98; RESP 16; TEMP 36.3; BMI 48.7
--- NOTE | 2025-04-05 14:10 | PCM.WC.HP ---
History of Present Illness Date of Service: 04/05/25 Chief Complaint: Left chest wound History of Wound: The patient is a 39-year-old male presenting with a chest abscess. The abscess was initially identified as a boil on the left chest and was treated with incision and drainage approximately 10 days ago. The patient was prescribed Bactrim and has been adherent to the medication regimen. The patient has a history of diabetes mellitus, with a recent A1c of 8.2, down from 11, indicating improvement in glycemic control. He also has hypertension, which was elevated during the visit due to a missed dose of medication. The patient has a significant family history of breast cancer, including his mother, uncle, and multiple aunts. He has undergone screening by his primary care physician, Dr. Sawyer, but no mammogram was performed. Attestation: Documentation on this patient encounter was supported using ambient scribe technology/ voice AI technology. The patient consented to recording for the purpose of documenting the encounter. Provider reviewed content of the generated note prior to signature. [facility] Medical History Pre-op examination MONO (obstructive sleep apnea) Type 2 diabetes mellitus GERD (gastroesophageal reflux disease) Essential hypertension Anxiety Accelerated hypertension Left-sided carotid artery disease TIA (transient ischemic attack) Hyperglycemia Syncope Hypertension Anxiety Diabetes Home Medications ?Medication ?Instructions ?Recorded ?Last Taken ?Type atorvastatin 20 mg tablet 20 mg PO QHS 04/26/21 Unknown History multivitamin 1 tab PO DAILY 04/26/21 Unknown History omega-3 fatty acids 1,000 mg 1,000 mg PO DAILY 04/26/21 Unknown History capsule (Fish Oil Concentrate) aspirin 325 mg tablet 325 mg PO DAILY 04/27/21 Unknown History insulin lispro 100 unit/mL 18 unit subcut QAC 04/27/21 Unknown History subcutaneous pen (Humalog KwikPen (U-100) Insulin) cholecalciferol (vitamin D3) 50 50 mcg PO DAILY #90 caps 06/09/21 Unknown Rx mcg (2,000 unit) capsule losartan 100 mg tablet 100 mg PO DAILY #90 tabs 09/20/21 Unknown Rx insulin glargine 100 unit/mL (3 75 unit subcut DAILY 02/25/23 Unknown History mL) subcutaneous pen Allergy/AdvReac Type Severity Reaction Status Date / Time ibuprofen AdvReac Shortness Verified 09/09/24 23:41 of breath Family History Father Diabetes Heart disease Grandmother CAD (coronary artery disease) Grandfather CAD (coronary artery disease) Myocardial infarction Grandmother Diabetes CHF (congestive heart failure) Social History Smoking Status: Never smoker alcohol intake: never substance use type: does not use caffeine: Yes Type: carbonated beverages Number of servings: 2 and coffee Number of servings: 1 ROS ROS Narrative - Cardiovascular: Denies chest pain, orthopnea, or syncope. - Respiratory: Denies cough, hemoptysis, or wheezing. - Hematologic: Denies bleeding or clotting problems. Vital Signs Vital Signs Vital Signs: 04/05/25 13:27 Temperature 97.3 F L Temperature Source Temporal Pulse Rate 98 Respiratory Rate 16 Blood Pressure 173/101 H Blood Pressure Mean 125 Blood Pressure Source Monitor Blood Pressure Position Sitting Blood Pressure Location Right Forearm Weight Weight: 380 lb Body Mass Index (BMI) 48.7 Physical Exam Narrative - Chest: Incision and drainage site on the left chest with necrotic tissue noted, no signs of infection. Left chest wound is 1 x 2 cm and 1 cm deep with an abscess cavity below the surface with fibrinous exudate and necrotic abscess rind within the wound Debridement Note Debridement Note Wound debrided: Left chest wound Laterality: Left Wound Grade/Stage: Stage III and subcutaneous tissues Type of Debridement: Excisional debridement Anesthesia Used: 4% Lidocaine Solution and - (5 cc 1% lidocaine with 1-200,000 epinephrine) Depth: in the subcutaneous layer Percentage of wound debrided: 100 Instrument Used: 7mm curette Tissue Removed: Fibrinous exudate and necrotic abscess wall and rind Severity: Fat Layer Exposed Amount of bleeding with debridement: Moderate Bleeding Controlled with: Compression and gauze Patient tolerated procedure: Patient tolerated procedure well Post-Debridement Measurements and Additional Note: Post-Debridement Measurements/Treatment - Nurse 1 - General Ulcer Assessment Start: 04/05/25 13:27 Freq: Status: Active Protocol: LOWEXNanette Activity Type Activity Date Activity User E-sign Co-sign Detail Recorded Client Recorded Date Recorded By Document 04/05/25 13:27 ML [id number] 04/05/25 13:32 ML 04/05/25 13:27 WC - Today's Visit Information Type of service Initial Visit Arrival Mode Ambulatory Transfer Assistance None Patient Identification Verified (Name & Yes ) Patient Requires Transmission-Based No Precautions Finger Stick Blood Sugar(mg/dl) (if 239 indicated): Blood Sugar Stated by Patient Height and Weight Height 6 ft 2 in Weight 380 lb Weight in Pounds 380.0 lbs Body Mass Index (BMI) 48.7 BMI Classification Obese Vital Signs Temperature (97.8 F-99.1 F) 97.3 F L Temperature Source Temporal Pulse Rate (60-100) 98 Pulse Location Monitor Respiratory Rate (12-18) 16 Respiratory rate source Observation Blood Pressure (90/60-120/80) 173/101 H Blood Pressure Mean 125 Source Monitor Position Sitting Blood Pressure Location Right Forearm Pain Scale: 0-10 Numeric Is Patient Pain Free? Yes - Nurse 1 - General Ulcer Measurement Start: 04/05/25 13:27 Freq: Status: Active Protocol: Activity Type Activity Date Activity User E-sign Co-sign Detail Recorded Client Recorded Date Recorded By Document 04/05/25 13:27 ML [id number] 04/05/25 13:32 ML 04/05/25 13:27 Wound Center Nurse 1 #1 left upper chest -Current Size (cm) - Length 0.3 -Current Size (cm) - Width 0.3 -Current Size (cm) - Depth 0.5 -Total Square Cm 0.09 -Photo Taken Yes -Exudate Amt Small -Exudate Type Serosanguineous -Granulation Amt None Present (0 %) -Slough/Fibrin Yes -Necrosis Amt Small (1-33%) -Necrotic Tissue Type Adherent Slough -Texture (Gabbie-wound Skin Appearance) Assessed -Moisture (Gabbie-wound Skin Appearance) Assessed -Color (Gabbie-wound Skin Appearance) Assessed -Temperature (Gabbie-wound Skin No Abnormality Appearance) (Pt Warm) -Tenderness on Palpation (Gabbie-wound No Skin Appearance) -Ulcer Cleansing Rinsed/ Irrigated with Saline -Foul Odor after Cleansing No -Anesthetic Used 5% Lidocaine Gel WC - Nurse 2 - General Ulcer CM Notes Start: 04/05/25 13:27 Freq: Status: Active Protocol: Activity Type Activity Date Activity User E-sign Co-sign Detail Recorded Client Recorded Date Recorded By Document 04/05/25 13:40 DS [id number] 04/05/25 13:40 DS Edit Result 04/05/25 13:40 DS (1) [id number] 04/05/25 13:44 DS (1) #1 left upper chest - Post Debridement (cm) - Depth => 1.0 - Area of Debridement (cm) - Length => 2.0 - Area of Debridement (cm) - Width => 1.0 - Total Square (Area) (cm) => 2.00 04/05/25 13:40 Wound Center Nurse 2 -Time 13:40 -Correct Patient Yes -Correct Side, Site, Position Yes -Correct Procedure Yes -Procedure Performed Yes -Type of Procedure Debridement -Clinical Debridement Subcutaneous -Tissue Removed Subcutaneous -Post Debridement (cm) - Length 2.0 -Post Debridement (cm) - Width 1.0 -Post Debridement (cm) - Depth 1.0 -Total Square (Post) (cm) 2.00 -Area of Debridement (cm) - Length 2.0 -Area of Debridement (cm) - Width 1.0 -Total Square (Area) (cm) 2.00 -Tunneling No -Undermining/Tunneling No -Circular Undermining No -Wound/Ulcer Outcome Not Healed -Ulcer Cleansing Rinsed/ Irrigated with Saline -Foul Odor after Cleansing No -Bioengineered Tissue No -Injectable Lidocaine w/ Epi (%) 1 -Injectable Lidocaine w/ Epi (mls) 10 -Bleeding Controlled with Pressure -Treatment Response Procedure Tolerated Well -Debridement - Subq, 1st 20sq cm Yes Pain Scale: 0-10 Numeric Is Patient Pain Free? Yes - Nurse 3 - General Ulcer D/C NN Start: 04/05/25 13:27 Freq: Status: Active Protocol: Activity Type Activity Date Activity User E-sign Co-sign Detail Recorded Client Recorded Date Recorded By Document 04/05/25 13:27 ML [id number] 04/05/25 13:32 ML Document 04/05/25 13:58 KW [id number] 04/05/25 13:58 KW 04/05/25 04/05/25 13:27 13:58 Pain Scale: 0-10 Numeric Is Patient Pain Free? Yes Yes Wound Care Center Nurse 3 #1 left upper chest -Primary Dressing Applied Nugauze, Iodoform 1/2in -Primary Dressing Covered/Secured with Dry Gauze, Secured with Tape -Nugauze, Iodoform 1/2in 1 WC - Visit Discharge Discharge Condition Stable Ambulatory Status Ambulatory Transportation Private Auto Medication Reconcilliation completed & No provided to patient/care provider Clinical Summary of Care Provided Yes Charges/Coding Visit Charges Office Visits / Consults: 44000 OV L3 New 30min (25 modifier for below procedures ) Procedures Integumentary 111xxx-113xx: [id number] Janet subq tissue 20 sq cm/< Assessment/Plan Assessment/Plan (1) Open chest wound: CODE(S): S21.109A - Unspecified open wound of unspecified front wall of thorax without penetration into thoracic cavity, initial encounter (2) Family history of breast cancer: CODE(S): Z80.3 - Family history of malignant neoplasm of breast (3) Breast abscess: CODE(S): N61.1 - Abscess of the breast and nipple PLAN: Plan Assessment and Plan The patient is a 39-year-old male with a history of diabetes mellitus and hypertension, presenting with a chest abscess. The abscess was treated with incision and drainage, and the patient has been compliant with antibiotic therapy, showing no signs of infection currently. Given the significant family history of breast cancer, a chest MRI with contrast is recommended to rule out any underlying malignancy, especially considering the unusual location of the abscess. 1. Diabetes Mellitus The patient's diabetes mellitus is being managed with a focus on improving glycemic control, as evidenced by the reduction in A1c from 11 to 8.2. Continued monitoring of blood glucose levels and adherence to prescribed medications are essential. 2. Hypertension The patient's hypertension requires regular medication adherence to maintain blood pressure control, as a missed dose resulted in elevated readings during the visit. 3. Abscess Of The Chest The chest abscess was managed with incision and drainage, and the patient is advised to continue with proper wound care and follow-up visits to ensure complete healing. 4. Preventative Care: Chest Mri With Contrast For Breast Cancer Screening Due to the significant family history of breast cancer and the unusual presentation of the abscess, a chest MRI with contrast is recommended to rule out any malignancy (ordered). - Continue taking all prescribed medications as directed. - Perform wound care twice daily, ensuring proper packing and cleaning. - Schedule and complete a chest MRI with contrast as recommended. - Follow up in clinic next week for reassessment.
--- NOTE | 2025-04-06 08:54 | WC ---
PHOTO 04/05/25 L CHEST
[2025-04-12 14:09] VITALS: BP 143/89; PULSE 100; RESP 18; TEMP 37.1; BMI 48.7
--- NOTE | 2025-04-13 07:21 | PN.PCM_ITS ---
History of Present Illness Date of Service: 04/12/25 Chief Complaint: Left chest wound History of Wound: HPI 05 April 2025: The patient is a 39-year-old male presenting with a chest abscess. The abscess was initially identified as a boil on the left chest and was treated with incision and drainage approximately 10 days ago. The patient was prescribed Bactrim and has been adherent to the medication regimen. The patient has a history of diabetes mellitus, with a recent A1c of 8.2, down from 11, indicating improvement in glycemic control. He also has hypertension, which was elevated during the visit due to a missed dose of medication. The patient has a significant family history of breast cancer, including his mother, uncle, and multiple aunts. He has undergone screening by his primary care physician, Dr. Sawyer, but no mammogram was performed. Attestation: Documentation on this patient encounter was supported using ambient scribe technology/ voice AI technology. The patient consented to recording for the purpose of documenting the encounter. Provider reviewed content of the generated note prior to signature. Subjective Subjective CURRENT ENCOUNTER, 12 April 2025: The patient is a 39-year-old male presenting with a follow-up for left chest wound healing and preventative care due to family history of breast cancer. The left chest wound has shown no blood or discharge over the past week, indicating good healing progress. The wound measures 0.5 cm by 1 cm with a depth of 0.6 cm, and iodoform packing is being used twice daily to promote healing from the inside out. The patient has a family history of male breast cancer, specifically an uncle who was diagnosed with the condition. The patient has undergone regular examinations for lumps and bumps, both by the current physician and the primary care provider, with no abnormalities detected. ROS: - Integumentary: Reports no blood or discharge from the left chest wound. - General: Denies any signs of infection in the wound area. Attestation: Documentation on this patient encounter was supported using ambient scribe technology/ voice AI technology. The patient consented to recording for the purpose of documenting the encounter. Provider reviewed content of the generated note prior to signature. Objective Data Objective Data Vital Signs: Vital Signs Temp Pulse Resp BP 98.7 F 100 18 143/89 H 04/12/25 14:09 04/12/25 14:09 04/12/25 14:09 04/12/25 14:09 Weight: 380 lb Body Mass Index (BMI) 48.7 Charges/Coding Procedures Integumentary 111xxx-113xx: 77155 Janet subq tissue 20 sq cm/< Physical Exam Narrative - Chest: Left chest wound measuring 0.5 cm by 1 cm, depth 0.6 cm, healing well with no signs of infection No axillary lymphadenopathy Debridement Note Debridement Note Wound debrided: Left chest wound Laterality: Left Wound Grade/Stage: 3 Type of Debridement: Excisional debridement Anesthesia Used: 4% Lidocaine Solution Depth: in the subcutaneous layer Percentage of wound debrided: 100 Instrument Used: 7mm curette Tissue Removed: Necrotic fibrinous excudate and necrotic fat Severity: Fat Layer Exposed Amount of bleeding with debridement: Moderate Bleeding Controlled with: Compression and gauze Patient tolerated procedure: Patient tolerated procedure well Post-Debridement Measurements and Additional Note: Post-Debridement Measurements/Treatment WC - Nurse 1 - General Ulcer Assessment Start: 04/05/25 13:27 Freq: Status: Active Protocol: MARIA [facility] Activity Type Activity Date Activity User E-sign Co-sign Detail Recorded Client Recorded Date Recorded By Document 04/05/25 13:27 ML [id number] 04/05/25 13:32 ML Document 04/12/25 14:09 DL [id number] 04/12/25 14:12 DL 04/05/25 04/12/25 13:27 14:09 - Today's Visit Information Type of service Initial Visit Follow-up Visit (Physician/AUTOMATIC THREAD WINDER ) Arrival Mode Ambulatory Ambulatory Transfer Assistance None None Patient Identification Verified (Name & Yes Yes ) Patient Requires Transmission-Based No No Precautions Finger Stick Blood Sugar(mg/dl) (if 239 indicated): Blood Sugar Stated by Patient Height and Weight Height 6 ft 2 in Weight 380 lb Weight in Pounds 380.0 lbs Body Mass Index (BMI) 48.7 48.7 BMI Classification Obese Obese Vital Signs Temperature (97.8 F-99.1 F) 97.3 F L 98.7 F Temperature Source Temporal Temporal Pulse Rate (60-100) 98 100 Pulse Location Monitor Monitor Respiratory Rate (12-18) 16 18 Respiratory rate source Observation Observation Blood Pressure (90/60-120/80) 173/101 H 143/89 H Blood Pressure Mean (mm Hg) 125 107 Source Monitor Monitor Position Sitting Blood Pressure Location Right Forearm History Since Last Visit- (Skip if this is Patient's initial visit) Have you changed medications since your No last visit? Any new allergies or adverse reactions No Had a fall/change in ADL's that may No increase risk of falls Signs or symptoms of abuse and/or No neglect since last visit Have you been in the hospital since your No last visit? Has dressing in place as prescribed Yes Has compression in place as prescribed N/A Has offloadiing in place as prescribed N/A Experienced any changes in pain level or No management Pain Scale: 0-10 Numeric Is Patient Pain Free? Yes Yes WC - Nurse 1 - General Ulcer Measurement Start: 04/05/25 13:27 Freq: Status: Active Protocol: Activity Type Activity Date Activity User E-sign Co-sign Detail Recorded Client Recorded Date Recorded By Document 04/05/25 13:27 ML [id number] 04/05/25 13:32 ML Document 04/12/25 14:09 DL [id number] 04/12/25 14:12 DL 04/05/25 04/12/25 13:27 14:09 Wound Center Nurse 1 #1 left upper chest -Current Size (cm) - Length 0.3 0.4 -Current Size (cm) - Width 0.3 1 -Current Size (cm) - Depth 0.5 0.8 -Total Square Cm 0.09 0.4 -Photo Taken Yes Yes -Exudate Amt Small Small -Exudate Type Serosanguineous Serosanguineous -Wound Margin Distinct, Outline Attached -Granulation Amt None Present (0 Large (67-100%) %) -Granulation Quality Red -Slough/Fibrin Yes No -Necrosis Amt Small (1-33%) None Present (0 %) -Necrotic Tissue Type Adherent Slough -Structure Exposed N/A -Texture (Gabbie-wound Skin Appearance) Assessed Scarring -Moisture (Gabbie-wound Skin Appearance) Assessed No Abnormality -Color (Gabbie-wound Skin Appearance) Assessed No Abnormality -Temperature (Gabbie-wound Skin No Abnormality No Abnormality Appearance) (Pt Warm) (Pt Warm) -Tenderness on Palpation (Gabbie-wound No Skin Appearance) -Ulcer Cleansing Rinsed/ Soap and Water Irrigated with Saline -Foul Odor after Cleansing No No -Anesthetic Used 5% Lidocaine 5% Lidocaine Gel Gel WC - Nurse 2 - General Ulcer CM Notes Start: 04/05/25 13:27 Freq: Status: Active Protocol: Activity Type Activity Date Activity User E-sign Co-sign Detail Recorded Client Recorded Date Recorded By Document 04/05/25 13:40 DS [id number] 04/05/25 13:40 DS Edit Result 04/05/25 13:40 DS (1) [id number] 04/05/25 13:44 DS Document 04/12/25 14:38 JF [id number] 04/12/25 14:41 JF (1) #1 left upper chest - Post Debridement (cm) - Depth => 1.0 - Area of Debridement (cm) - Length => 2.0 - Area of Debridement (cm) - Width => 1.0 - Total Square (Area) (cm) => 2.00 04/05/25 04/12/25 13:40 14:38 Wound Center Nurse 2 #1 left upper chest -Time 13:40 14:40 -Correct Patient Yes Yes -Correct Side, Site, Position Yes Yes -Correct Procedure Yes Yes -Procedure Performed Yes Yes -Type of Procedure Debridement Debridement -Clinical Debridement Subcutaneous Subcutaneous -Tissue Removed Subcutaneous Subcutaneous -Post Debridement (cm) - Length 2.0 0.5 -Post Debridement (cm) - Width 1.0 1 -Post Debridement (cm) - Depth 1.0 0.6 -Total Square (Post) (cm) 2.00 0.5 -Area of Debridement (cm) - Length 2.0 0.5 -Area of Debridement (cm) - Width 1.0 1.0 -Total Square (Area) (cm) 2.00 0.50 -Tunneling No No -Undermining/Tunneling No No -Circular Undermining No No -Wound/Ulcer Outcome Not Healed Not Healed -Ulcer Cleansing Rinsed/ Rinsed/ Irrigated with Irrigated with Saline Saline -Foul Odor after Cleansing No No -Bioengineered Tissue No No -Injectable Lidocaine w/ Epi (%) 1 -Injectable Lidocaine w/ Epi (mls) 10 -Bleeding Controlled with Pressure Pressure -Treatment Response Procedure Procedure Tolerated Well Tolerated Well -Offloading No -Debridement - Subq, 1st 20sq cm Yes Yes Pain Scale: 0-10 Numeric Is Patient Pain Free? Yes Yes WC - Nurse 3 - General Ulcer D/C NN Start: 04/05/25 13:27 Freq: Status: Active Protocol: Activity Type Activity Date Activity User E-sign Co-sign Detail Recorded Client Recorded Date Recorded By Document 04/05/25 13:27 ML [id number] 04/05/25 13:32 ML Document 04/05/25 13:58 KW [id number] 04/05/25 13:58 KW Document 04/12/25 14:53 DL [id number] 04/12/25 14:55 DL 04/05/25 04/05/25 04/12/25 13:27 13:58 14:53 Pain Scale: 0-10 Numeric Is Patient Pain Free? Yes Yes No Wound Care Center Nurse 3 #1 left upper chest -Ulcer Cleansing Rinsed/ Irrigated with Saline -Foul Odor after Cleansing No -Primary Dressing Applied Nugauze, Iodoform 1/2in -Other Dressing Moist Gauze packing -Primary Dressing Covered/Secured with Dry Gauze, Dry Gauze, Secured with Secured with Tape Tape -Nugauze, Iodoform 1/2in 1 -Wound Comment(s) Pt to resume Iodoform packing at home . Treatment Response Procedure Tolerated Well WC - Visit Discharge Discharge Condition Stable Stable Ambulatory Status Ambulatory Ambulatory Transportation Private Auto Private Auto Medication Reconcilliation completed & No provided to patient/care provider Clinical Summary of Care Provided Yes Assessment/Plan Assessment/Plan (1) Breast abscess: CODE(S): N61.1 - Abscess of the breast and nipple (2) Family history of breast cancer: CODE(S): Z80.3 - Family history of malignant neoplasm of breast (3) Open chest wound: CODE(S): S21.109A - Unspecified open wound of unspecified front wall of thorax without penetration into thoracic cavity, initial encounter (4) Ulcer of skin of breast: CODE(S): L98.499 - Non-pressure chronic ulcer of skin of other sites with unspecified severity PLAN: Plan Assessment and Plan The patient is a 39-year-old male with a history of a left chest wound presenting for follow-up and preventative care due to a family history of male breast cancer. The left chest wound is healing well, with no signs of infection, and measures 0.5 cm by 1 cm with a depth of 0.6 cm. Iodoform packing is being used twice daily to promote healing from the inside out. The patient has a family history of male breast cancer, specifically an uncle w ho was diagnosed with the condition. Regular examinations for lumps and bumps have been conducted, with no abnormalities detected. 1. Breast Ulcer The patient will continue with iodoform packing twice daily to promote healing of the left chest wound. No further antibiotics are necessary as there are no signs of infection. Follow-up appointments will be scheduled to monitor healing progress. 2. Preventative Care: Family History Of Male Breast Cancer Due to the family history of male breast cancer, regular examinations for lumps and bumps will continue. The patient is advised to remain vigilant for any changes and report them promptly. We have ordered an MRI for breast cancer screening. - Continue iodoform packing twice daily for the left chest wound. Obtain MRI - No need to continue antibiotics as there are no signs of infection. - Schedule follow-up appointments to monitor healing progress. - Remain vigilant for any changes due to family history of male breast cancer and report them promptly.
[2025-04-19 14:04] VITALS: BP 170/85; PULSE 102; RESP 17; TEMP 36.2; BMI 48.7
--- NOTE | 2025-04-20 11:33 | PN.PCM_ITS ---
History of Present Illness Date of Service: 04/19/25 Chief Complaint: Left chest wound History of Wound: HPI 05 April 2025: The patient is a 39-year-old male presenting with a chest abscess. The abscess was initially identified as a boil on the left chest and was treated with incision and drainage approximately 10 days ago. The patient was prescribed Bactrim and has been adherent to the medication regimen. The patient has a history of diabetes mellitus, with a recent A1c of 8.2, down from 11, indicating improvement in glycemic control. He also has hypertension, which was elevated during the visit due to a missed dose of medication. The patient has a significant family history of breast cancer, including his mother, uncle, and multiple aunts. He has undergone screening by his primary care physician, Dr. Sawyer, but no mammogram was performed. Attestation: Documentation on this patient encounter was supported using ambient scribe technology/ voice AI technology. The patient consented to recording for the purpose of documenting the encounter. Provider reviewed content of the generated note prior to signature. Subjective Subjective 12 April 2025: The patient is a 39-year-old male presenting with a follow-up for left chest wound healing and preventative care due to family history of breast cancer. The left chest wound has shown no blood or discharge over the past week, indicating good healing progress. The wound measures 0.5 cm by 1 cm with a depth of 0.6 cm, and iodoform packing is being used twice daily to promote healing from the inside out. The patient has a family history of male breast cancer, specifically an uncle who was diagnosed with the condition. The patient has undergone regular examinations for lumps and bumps, both by the current physician and the primary care provider, with no abnormalities detected. ROS: - Integumentary: Reports no blood or discharge from the left chest wound. - General: Denies any signs of infection in the wound area. Attestation: Documentation on this patient encounter was supported using ambient scribe technology/ voice AI technology. The patient consented to recording for the purpose of documenting the encounter. Provider reviewed content of the generated note prior to signature. CURRENT ENCOUNTER, 19 April 2025: The patient is a 39-year-old male presenting with wound care management and MRI scheduling issues due to size constraints. The patient reported difficulty undergoing an MRI due to size constraints, as the machine could not accommodate him in the prone position. Alternative arrangements for an open MRI at a different location were discussed, with potential options in [place] or [facility]. Regarding wound care, the patient has been managing a wound that is healing well and is almost closed. The patient has been advised to continue packing the wound, and there was a discussion about possibly packing it too tightly, but the current management was deemed appropriate. Additional supplies, including a new bottle of solution and long Q-tips, were recommended for continued care. ROS :- Musculoskeletal: Reports difficulty with MRI due to size constraints - Integumentary: Reports wound healing well, almost closed Attestation: Documentation on this patient encounter was supported using ambient scribe technology/ voice AI technology. The patient consented to recording for the purpose of documenting the encounter. Provider reviewed content of the generated note prior to signature. Objective Data Objective Data Vital Signs: Vital Signs Temp Pulse Resp BP 97.1 F L 102 H 17 170/85 H 04/19/25 14:04 04/19/25 14:04 04/19/25 14:04 04/19/25 14:04 Weight: 380 lb Body Mass Index (BMI) 48.7 Charges/Coding Visit Charges Office Visits / Consults: 24792 OV L3 Est 20min Physical Exam Narrative - Integumentary: Left chest abscess wound healing well, almost closed. No purulent drainage. 0.5 x 0.5 cm and 0.5 cm depth Debridement Note Debridement Note No debridement was completed: No debridement was completed today Post-Debridement Measurements and Additional Note: Post-Debridement Measurements/Treatment WC - Nurse 1 - General Ulcer Assessment Start: 04/05/25 13:27 Freq: Status: Active Protocol: MARIA [facility] Activity Type Activity Date Activity User E-sign Co-sign Detail Recorded Client Recorded Date Recorded By Document 04/05/25 13:27 ML [id number] 04/05/25 13:32 ML Document 04/12/25 14:09 DL [id number] 04/12/25 14:12 DL Document 04/19/25 14:04 DL [id number] 04/19/25 14:08 DL 04/05/25 04/12/25 04/19/25 13:27 14:09 14:04 WC - Today's Visit Information Type of service Initial Visit Follow-up Visit Follow-up Visit (Physician/BIOMETRICS CONSULTANT (Physician/BIOMETRICS CONSULTANT ) ) Arrival Mode Ambulatory Ambulatory Ambulatory Transfer Assistance None None None Patient Identification Verified (Name & Yes Yes Yes ) Patient Requires Transmission-Based No No No Precautions Finger Stick Blood Sugar(mg/dl) (if 239 indicated): Blood Sugar Stated by Patient Height and Weight Height 6 ft 2 in Weight 380 lb Weight in Pounds 380.0 lbs Body Mass Index (BMI) 48.7 48.7 48.7 BMI Classification Obese Obese Obese Vital Signs Temperature (97.8 F-99.1 F) 97.3 F L 98.7 F 97.1 F L Temperature Source Temporal Temporal Temporal Pulse Rate (60-100) 98 100 102 H Pulse Location Monitor Monitor Monitor Respiratory Rate (12-18) 16 18 17 Respiratory rate source Observation Observation Observation Blood Pressure (90/60-120/80) 173/101 H 143/89 H 170/85 H Blood Pressure Mean (mm Hg) 125 107 113 Source Monitor Monitor Monitor Position Sitting Blood Pressure Location Right Forearm History Since Last Visit- (Skip if this is Patient's initial visit) Have you changed medications since your No No last visit? Any new allergies or adverse reactions No No Had a fall/change in ADL's that may No No increase risk of falls Signs or symptoms of abuse and/or No No neglect since last visit Have you been in the hospital since your No No last visit? Has dressing in place as prescribed Yes Yes Has compression in place as prescribed N/A N/A Has offloadiing in place as prescribed N/A N/A Experienced any changes in pain level or No No management Pain Scale: 0-10 Numeric Is Patient Pain Free? Yes Yes Yes WC - Nurse 1 - General Ulcer Measurement Start: 04/05/25 13:27 Freq: Status: Active Protocol: Activity Type Activity Date Activity User E-sign Co-sign Detail Recorded Client Recorded Date Recorded By Document 04/05/25 13:27 ML [id number] 04/05/25 13:32 ML Document 04/12/25 14:09 DL [id number] 04/12/25 14:12 DL Document 04/19/25 14:04 DL [id number] 04/19/25 14:08 DL 04/05/25 04/12/25 04/19/25 13:27 14:09 14:04 Wound Center Nurse 1 #1 left upper chest -Current Size (cm) - Length 0.3 0.4 0.5 -Current Size (cm) - Width 0.3 1 0.7 -Current Size (cm) - Depth 0.5 0.8 0.5 -Total Square Cm 0.09 0.4 0.35 -Photo Taken Yes Yes -Exudate Amt Small Small Small -Exudate Type Serosanguineous Serosanguineous Serosanguineous -Wound Margin Distinct, Distinct, Outline Outline Attached Attached -Granulation Amt None Present (0 Large (67-100%) Large (67-100%) %) -Granulation Quality Red Pale -Slough/Fibrin Yes No -Necrosis Amt Small (1-33%) None Present (0 None Present (0 %) %) -Necrotic Tissue Type Adherent Slough -Structure Exposed N/A N/A -Texture (Gabbie-wound Skin Appearance) Assessed Scarring Scarring -Moisture (Gabbie-wound Skin Appearance) Assessed No Abnormality No Abnormality -Color (Gabbie-wound Skin Appearance) Assessed No Abnormality No Abnormality -Temperature (Gabbie-wound Skin No Abnormality No Abnormality No Abnormality Appearance) (Pt Warm) (Pt Warm) (Pt Warm) -Tenderness on Palpation (Gabbie-wound No No Skin Appearance) -Ulcer Cleansing Rinsed/ Soap and Water Soap and Water Irrigated with Saline -Foul Odor after Cleansing No No No -Anesthetic Used 5% Lidocaine 5% Lidocaine 4% Lidocaine Gel Gel Solution,5% Lidocaine Gel WC - Nurse 2 - General Ulcer CM Notes Start: 04/05/25 13:27 Freq: Status: Active Protocol: Activity Type Activity Date Activity User E-sign Co-sign Detail Recorded Client Recorded Date Recorded By Document 04/05/25 13:40 DS [id number] 04/05/25 13:40 DS Edit Result 04/05/25 13:40 DS (1) [id number] 04/05/25 13:44 DS Document 04/12/25 14:38 JF [id number] 04/12/25 14:41 JF Document 04/19/25 14:30 DS [id number] 04/19/25 14:30 DS (1) #1 left upper chest - Post Debridement (cm) - Depth => 1.0 - Area of Debridement (cm) - Length => 2.0 - Area of Debridement (cm) - Width => 1.0 - Total Square (Area) (cm) => 2.00 04/05/25 04/12/25 04/19/25 13:40 14:38 14:30 Wound Center Nurse 2 #1 left upper chest -Time 13:40 14:40 14:30 -Correct Patient Yes Yes Yes -Correct Side, Site, Position Yes Yes Yes -Correct Procedure Yes Yes -Procedure Performed Yes Yes No -Type of Procedure Debridement Debridement -Clinical Debridement Subcutaneous Subcutaneous -Tissue Removed Subcutaneous Subcutaneous -Post Debridement (cm) - Length 2.0 0.5 -Post Debridement (cm) - Width 1.0 1 -Post Debridement (cm) - Depth 1.0 0.6 -Total Square (Post) (cm) 2.00 0.5 -Area of Debridement (cm) - Length 2.0 0.5 -Area of Debridement (cm) - Width 1.0 1.0 -Total Square (Area) (cm) 2.00 0.50 -Tunneling No No -Undermining/Tunneling No No -Circular Undermining No No -Wound/Ulcer Outcome Not Healed Not Healed Not Healed -Ulcer Cleansing Rinsed/ Rinsed/ Irrigated with Irrigated with Saline Saline -Foul Odor after Cleansing No No -Bioengineered Tissue No No -Injectable Lidocaine w/ Epi (%) 1 -Injectable Lidocaine w/ Epi (mls) 10 -Bleeding Controlled with Pressure Pressure -Treatment Response Procedure Procedure Tolerated Well Tolerated Well -Offloading No -Debridement - Subq, 1st 20sq cm Yes Yes Pain Scale: 0-10 Numeric Is Patient Pain Free? Yes Yes Yes - Nurse 3 - General Ulcer D/C NN Start: 04/05/25 13:27 Freq: Status: Active Protocol: Activity Type Activity Date Activity User E-sign Co-sign Detail Recorded Client Recorded Date Recorded By Document 04/05/25 13:27 ML [id number] 04/05/25 13:32 ML Document 04/05/25 13:58 KW [id number] 04/05/25 13:58 KW Document 04/12/25 14:53 DL [id number] 04/12/25 14:55 DL Document 04/19/25 14:34 DL [id number] 04/19/25 14:35 DL 04/05/25 04/05/25 04/12/25 13:27 13:58 14:53 Pain Scale: 0-10 Numeric Is Patient Pain Free? Yes Yes No Wound Care Center Nurse 3 #1 left upper chest -Ulcer Cleansing Rinsed/ Irrigated with Saline -Foul Odor after Cleansing No -Primary Dressing Applied Nugauze, Iodoform 1/2in -Other Dressing Moist Gauze packing -Primary Dressing Covered/Secured with Dry Gauze, Dry Gauze, Secured with Secured with Tape Tape -Nugauze, Iodoform 1/4 -Nugauze, Iodoform 1/2in 1 -Wound Comment(s) Pt to resume Iodoform packing at home . Treatment Response Procedure Tolerated Well WC - Visit Discharge Discharge Condition Stable Stable Ambulatory Status Ambulatory Ambulatory Transportation Private Auto Private Auto Medication Reconcilliation completed & No provided to patient/care provider Clinical Summary of Care Provided Yes 04/19/25 14:34 Pain Scale: 0-10 Numeric Is Patient Pain Free? Yes Wound Care Center Nurse 3 #1 left upper chest -Ulcer Cleansing Rinsed/ Irrigated with Saline -Foul Odor after Cleansing -Primary Dressing Applied Nugauze, Iodoform 1/4in -Other Dressing -Primary Dressing Covered/Secured with Dry Gauze, Secured with Tape -Nugauze, Iodoform 1/4 1 -Nugauze, Iodoform 1/2in -Wound Comment(s) Treatment Response WC - Visit Discharge Discharge Condition Ambulatory Status Transportation Medication Reconcilliation completed & provided to patient/care provider Clinical Summary of Care Provided Assessment/Plan Assessment/Plan (1) Breast abscess: CODE(S): N61.1 - Abscess of the breast and nipple (2) Family history of breast cancer: CODE(S): Z80.3 - Family history of malignant neoplasm of breast (3) Open chest wound: CODE(S): S21.109A - Unspecified open wound of unspecified front wall of thorax without penetration into thoracic cavity, initial encounter (4) Ulcer of skin of breast: CODE(S): L98.499 - Non-pressure chronic ulcer of skin of other sites with unspecified severity PLAN: Plan Assessment and Plan The patient is a 39-year-old male with a history of difficulty undergoing MRI for his breast tissue (has a breast ulcer /abscess and male family history of breast cancer ) due to size constraints, presenting today at the wound care center also for wound care management. The MRI could not be completed as the machine was unable to accommodate the patient in the required position, necessitating arrangements for an open MRI at an alternative location. The patient has previously undergone chest MRIs without issue, suggesting that the current problem is specific to the breast MRI requirements. The wound is healing well, with the patient continuing to pack it as advised. There was a concern about packing the wound too tightly, but the current management was deemed appropriate. Additional supplies were recommended to ensure continued proper care. 1. Difficulty With Mri Due To Size Constraints The patient requires an open MRI due to size constraints that prevented completion of the procedure in a standard MRI machine. Arrangements for an open MRI at a facility in [facility] are to be made. 2. Wound Care Management The wound is healing well and the patient is advised to continue current packing methods. Additional supplies, including a new bottle of solution and long Q- tips, are recommended for continued care. Follow-up is suggested in three weeks to reassess the wound's progress. - Continue packing the wound as advised. - Obtain additional supplies, including a new bottle of solution and long Q- tips. - Schedule an open MRI at a facility in [facility]. - Return for follow-up in three weeks to reassess wound healing.
== END 2025-04-29 23:59 | disposition home or self-care (01) ==
LOC: WC 13:15
PROVIDERS: Visit Provider Surgery Plastic and Reconstructive Surgery
DX: S21.109A Unspecified open wound of unspecified front wall of thorax without penetration into thoracic cavity, initial encounter (principal); L98.499 Non-pressure chronic ulcer of skin of other sites with unspecified severity; E11.9 Type 2 diabetes mellitus without complications; L02.213 Cutaneous abscess of chest wall; I10 Essential (primary) hypertension; L02.223 Furuncle of chest wall; N61.1 Abscess of the breast and nipple; Z83.3 Family history of diabetes mellitus; Z80.3 Family history of malignant neoplasm of breast; Z86.73 Personal history of transient ischemic attack (TIA), and cerebral infarction without residual deficits
CPT/HCPCS: 11042; 99213; G0463

== ENCOUNTER → 2025-04-19 | Outpatient (CLI) | payer OTHER, SELFPAY | END | disposition home or self-care (01) | PROVIDERS: Referring Provider Surgery Plastic and Reconstructive Surgery; Visit Provider Surgery Plastic and Reconstructive Surgery | DX: S21.109A Unspecified open wound of unspecified front wall of thorax without penetration into thoracic cavity, initial encounter (principal); L98.499 Non-pressure chronic ulcer of skin of other sites with unspecified severity; N61.1 Abscess of the breast and nipple; Z80.3 Family history of malignant neoplasm of breast; X58.XXXA Exposure to other specified factors, initial encounter ==

== ENCOUNTER 2025-05-17 13:32 | Outpatient (RCR) | payer OTHER, SELFPAY ==
[2025-05-17 13:43] VITALS: BP 148/83; PULSE 94; RESP 18; TEMP 36.6
--- NOTE | 2025-05-17 14:05 | PCM.WC.PN ---
History of Present Illness Date of Service: 05/17/25 Chief Complaint: Left chest wound History of Wound: HPI 05 April 2025: The patient is a 39-year-old male presenting with a chest abscess. The abscess was initially identified as a boil on the left chest and was treated with incision and drainage approximately 10 days ago. The patient was prescribed Bactrim and has been adherent to the medication regimen. The patient has a history of diabetes mellitus, with a recent A1c of 8.2, down from 11, indicating improvement in glycemic control. He also has hypertension, which was elevated during the visit due to a missed dose of medication. The patient has a significant family history of breast cancer, including his mother, uncle, and multiple aunts. He has undergone screening by his primary care physician, Dr. Sawyer, but no mammogram was performed. Attestation: Documentation on this patient encounter was supported using ambient scribe technology/ voice AI technology. The patient consented to recording for the purpose of documenting the encounter. Provider reviewed content of the generated note prior to signature. Subjective Subjective 12 April 2025: The patient is a 39-year-old male presenting with a follow-up for left chest wound healing and preventative care due to family history of breast cancer. The left chest wound has shown no blood or discharge over the past week, indicating good healing progress. The wound measures 0.5 cm by 1 cm with a depth of 0.6 cm, and iodoform packing is being used twice daily to promote healing from the inside out. The patient has a family history of male breast cancer, specifically an uncle who was diagnosed with the condition. The patient has undergone regular examinations for lumps and bumps, both by the current physician and the primary care provider, with no abnormalities detected. ROS: - Integumentary: Reports no blood or discharge from the left chest wound. - General: Denies any signs of infection in the wound area. Attestation: Documentation on this patient encounter was supported using ambient scribe technology/ voice AI technology. The patient consented to recording for the purpose of documenting the encounter. Provider reviewed content of the generated note prior to signature. 19 April 2025: The patient is a 39-year-old male presenting with wound care management and MRI scheduling issues due to size constraints. The patient reported difficulty undergoing an MRI due to size constraints, as the machine could not accommodate him in the prone position. Alternative arrangements for an open MRI at a different location were discussed, with potential options in [place] or [facility]. Regarding wound care, the patient has been managing a wound that is healing well and is almost closed. The patient has been advised to continue packing the wound, and there was a discussion about possibly packing it too tightly, but the current management was deemed appropriate. Additional supplies, including a new bottle of solution and long Q-tips, were recommended for continued care. ROS :- Musculoskeletal: Reports difficulty with MRI due to size constraints - Integumentary: Reports wound healing well, almost closed Attestation: Documentation on this patient encounter was supported using ambient scribe technology/ voice AI technology. The patient consented to recording for the purpose of documenting the encounter. Provider reviewed content of the generated note prior to signature. CURRENT ENCOUNTER, 17 May 2025: Doing well overall. Has not been able to place any packing at this point. Feels like it's healed. He was unable to get MRI 2/2 positioning issues (got to the machine and then had to abort). Objective Data Objective Data Vital Signs: Vital Signs Temp Pulse Resp BP 98 F 94 18 148/83 H 05/17/25 13:43 05/17/25 13:43 05/17/25 13:43 05/17/25 13:43 Charges/Coding Visit Charges Office Visits / Consults: 21184 OV L2 Est 10min Physical Exam Narrative Left chest: Healed/reepithelialized wound in the left medial upper breast No chest/breast masses on palpation. no axillary lymphadenopathy Debridement Note Debridement Note Post-Debridement Measurements and Additional Note: Post-Debridement Measurements/Treatment - Nurse 1 - General Ulcer Assessment Start: 05/17/25 13:43 Freq: Status: Active Protocol: WC.LOWEXT Activity Type Activity Date Activity User E-sign Co-sign Detail Recorded Client Recorded Date Recorded By Document 05/17/25 13:43 DL [id number] 05/17/25 13:48 DL 05/17/25 13:43 - Today's Visit Information Type of service Follow-up Visit (Physician/SIDE STAPLER ) Arrival Mode Ambulatory Transfer Assistance None Patient Identification Verified (Name & Yes ) Patient Requires Transmission-Based No Precautions Vital Signs Temperature (97.8 F-99.1 F) 98 F Temperature Source Temporal Pulse Rate (60-100) 94 Pulse Location Monitor Respiratory Rate (12-18) 18 Respiratory rate source Observation Blood Pressure (90/60-120/80) 148/83 H Blood Pressure Mean (mm Hg) 104 Source Monitor History Since Last Visit- (Skip if this is Patient's initial visit) Have you changed medications since your No last visit? Any new allergies or adverse reactions No Had a fall/change in ADL's that may No increase risk of falls Signs or symptoms of abuse and/or No neglect since last visit Have you been in the hospital since your No last visit? Has dressing in place as prescribed Yes Has compression in place as prescribed N/A Has offloadiing in place as prescribed N/A Experienced any changes in pain level or No management Pain Scale: 0-10 Numeric Is Patient Pain Free? Yes WC - Nurse 1 - General Ulcer Measurement Start: 05/17/25 13:43 Freq: Status: Active Protocol: Activity Type Activity Date Activity User E-sign Co-sign Detail Recorded Client Recorded Date Recorded By Document 05/17/25 13:43 DL [id number] 05/17/25 13:48 DL 05/17/25 13:43 Wound Center Nurse 1 #1 left upper chest -Current Size (cm) - Length 0.1 -Current Size (cm) - Width 0.1 -Current Size (cm) - Depth 0.1 -Total Square Cm 0.01 -Photo Taken Yes -Exudate Amt None Present -Wound Margin Distinct, Outline Attached -Granulation Amt Small (1-33%) -Granulation Quality [place] -Necrosis Amt None Present (0 %) -Structure Exposed N/A -Texture (Gabbie-wound Skin Appearance) Scarring -Moisture (Gabbie-wound Skin Appearance) No Abnormality -Color (Gabbie-wound Skin Appearance) No Abnormality -Temperature (Gabbie-wound Skin No Abnormality Appearance) (Pt Warm) -Tenderness on Palpation (Gabbie-wound No Skin Appearance) -Ulcer Cleansing Rinsed/ Irrigated with Saline -Foul Odor after Cleansing No WC - Nurse 2 - General Ulcer CM Notes Start: 05/17/25 13:43 Freq: Status: Active Protocol: Activity Type Activity Date Activity User E-sign Co-sign Detail Recorded Client Recorded Date Recorded By Document 05/17/25 14:00 [id number] 05/17/25 14:01 05/17/25 14:00 Wound Center Nurse 2 -Time 14:00 -Correct Patient Yes -Correct Side, Site, Position Yes -Correct Procedure No -Procedure Performed No -Tunneling No -Undermining/Tunneling No -Circular Undermining No -Wound/Ulcer Outcome Healed- Epithelialized -Ulcer Cleansing Not Cleansed -Foul Odor after Cleansing No -Bioengineered Tissue No -Bleeding Controlled with NA -Offloading No Pain Scale: 0-10 Numeric Is Patient Pain Free? Yes WC - Nurse 3 - General Ulcer D/C NN Start: 05/17/25 13:43 Freq: Status: Active Protocol: Activity Type Activity Date Activity User E-sign Co-sign Detail Recorded Client Recorded Date Recorded By Document 05/17/25 14:03 [id number] 05/17/25 14:04 05/17/25 14:03 Is Patient Pain Free? Yes WC - Visit Discharge Discharge Condition Stable Ambulatory Status Ambulatory Transportation Private Auto Clinical Summary of Care Provided Yes Assessment/Plan Assessment/Plan (1) Breast abscess: CODE(S): N61.1 - Abscess of the breast and nipple PLAN: Healed Patient is going to f/u with PCP this week regarding next step for imaging (mammogram v. ultrasound v. MRI). He understands that I've recommended he follow through with breast imaging in the setting of an abscess/wound development and an uncle who had breast cancer. I counseled him on the importance of obtaining some screening. Patient happy with the plan.
--- NOTE | 2025-05-19 11:57 | WC ---
PHOTO-LEFT UPPER CHEST 05/17/25
== END 2025-05-27 07:47 | disposition home or self-care (01) ==
LOC: WC 13:32
PROVIDERS: Visit Provider Surgery Plastic and Reconstructive Surgery
DX: Z09 Encounter for follow-up examination after completed treatment for conditions other than malignant neoplasm (principal); E11.9 Type 2 diabetes mellitus without complications; I10 Essential (primary) hypertension; N61.1 Abscess of the breast and nipple
CPT/HCPCS: 99213; G0463